=== PATIENT | female | born 1955 | race Caucasian/White ===

== ENCOUNTER 2021-07-02 21:57 | Inpatient (IN) ==
[2021-07-02] MEDS ORDERED: 0.9 % SODIUM CHLORIDE 1,000 ML IV ONE (22:33)
[2021-07-02 22:39] LABS: POC Calcium, Ionized 1.02 mmEq/L (1.16-1.32); POC Potassium 3.3 mEql/L (3.3-5.1)
[2021-07-02] MEDS ORDERED: ONDANSETRON 4 MG/2 ML VIAL IV ONE (22:51)
[2021-07-02] MEDS ORDERED: ACETAMINOPHEN 325 MG TABLET PO ONE (22:51)
[2021-07-02] MEDS ORDERED: FAMOTIDINE/PF 20 MG/2 ML VIAL IV ONE (22:51)
[2021-07-02] MEDS ORDERED: IPRATROPIUM/ALBUTEROL 3 ML AMPUL.NEB NEB ONE (22:52)
--- NOTE | 2021-07-02 22:55 | Emergency Department Note ---
HPI General Chief complaint: Syncope Stated complaint: passsed out Time Seen by Provider: 07/02/21 22:26 Source: patient Mode of arrival: EMS Limitations: no limitations History of Present Illness HPI Narrative: Narrative: 65-year-old female with no known past medical problems although she does not see a doctor frequently presenting to the ED with 5 days of generalized illness she reports. She has had fever T-max 10 1-1 03, cough, headache, fatigue, some watery nausea vomiting diarrhea. She denies any chest pain shortness of breath she denies any sore throat or significant congestion. No abdominal pain no urinary symptoms. Does feel progressively dehydrated and family member reports when he helped assist her to the toilet once she sat down she seemed to momentarily syncopized while seated and then regained consciousness versus momentarily confused. At no point did she fall or hit her head. No seizure-like activity, and has no focal neurologic symptoms. Patient denies any preceding events and currently other than the presenting symptoms as no new complaints following this brief episode. Of note is not vaccinated against COVID-19. Does smoke. Family reports they have been checking her pulse ox at home and it has been a bit low. Related Data Home Medications Medication Instructions Recorded Confirmed No Known Home Meds 07/02/21 07/02/21 Allergies Allergy/AdvReac Type Severity Reaction Status Date / Time No Known Drug Allergies Allergy Verified 03/11/16 02:29 Review of Systems ROS ROS Narrative: Narrative: At least 10 systems reviewed and otherwise acutely negative except as in the HPI PFSH Narrative Patient History Narrative: Narrative: Medical/Surgical/Family History All Active Problems (Updated 07/03/21 @ 06:01 by Jarrett Fernandes DO) COVID-19 (Acute) Dehydration (Acute) Acute viral syndrome (Acute) Generalized weakness (Acute) Unable to control bladder (Acute) Numbness and tingling of both feet (Acute) Foot swelling (Acute) Cellulitis (Acute) Wrist pain, acute (Acute) Medical History Cellulitis Foot swelling Numbness and tingling of both feet Unable to control bladder Surgical History No pertinent past surgical history Family History Uncle Cancer Sister Cancer Grandmother Cancer Grandfather Diabetes Mother High blood pressure Social History Smoking Status: Current every day smoker Alcohol Intake Frequency: does not drink Substance Use: does not use Exam Narrative Narrative: Narrative: Constitutional: normally developed, overall a bit ill-appearing although nondistressed, a bit sweaty Head: Normocephalic, atraumatic, Eyes: No Icterus, ENT: Dry mucus membranes, normal posterior oropharynx Neck: Supple, no meningismus Cardiac: Normal heart sounds, palpable radial pulses, Pulmonary: Normal respiratory effort. Breath sounds coarse with sporadic crackle no obvious wheeze, rhonchi, rales, Gastrointestinal: Abdomen soft, non-distended, non-tender, Musculoskeletal: No gross deformities, well perfused Skin: warm, dry Neuro: Alert and oriented. Face symmetric, PERRLA, EOMI, visual tomlinson intact, symmetric sensation in face, bilateral upper and lower extremities. No drift in extremities, no [id number] ataxia, symmetric motor strength in bilateral upper and lower extremities, no aphasia, no dysarthria. NIH 0 GCS 15 General Limitations: no limitations Course Vital Signs Vital signs: Vital Signs Temperature 36.7 C 07/02/21 22:12 Pulse Rate 72 07/02/21 22:12 Respiratory Rate 16 07/02/21 22:12 Blood Pressure 82/60 07/02/21 22:12 Pulse Oximetry (%) 89 L 07/02/21 22:12 Temperature 36.6 C 07/03/21 05:11 Pulse Rate 70 07/03/21 05:11 Respiratory Rate 18 07/03/21 05:11 Blood Pressure 96/66 07/03/21 05:11 Pulse Oximetry (%) 97 07/03/21 04:31 [facility] MDM Narrative Medical decision making narrative: Narrative: 65-year-old with generalized illness for 5 days progressive then with a brief momentary episode of what sounds like syncope versus near syncope while seated on the toilet, without any trauma. No signs or symptoms to suggest new onset seizure, does not suggest central neurologic cause/stroke and she has a normal neurologic exam NIH is 0. Initial vitals were mildly hypotensive and mildly hypoxic 89% on room air. Concern for viral syndrome, COVID-19, symptoms do not suggest ACS or PE and she has had no chest pain whatsoever will obtain EKG no indication for troponin at this time. Patient does appear quite dry and this likely contributed to this brief syncopal episode likely due to her reports of fever in the setting of watery nausea vomiting and diarrhea. Was started upon arrival with a liter of saline, will perform infectious work-up including Covid and influenza swabs also give her a trial of a DuoNeb given her slightly coarse breath sounds and history of chronic smoking. Twelve-lead EKG shows sinus rhythm heart rate 68 NM, QRS, QTc within normal, no acute ischemia or arrhythmia noted Patient is in fact COVID-[address] the head shows no acute findings Reevaluation is feeling better with IV hydration, blood pressure remains low normal however her map has remained stable throughout and her lactic acid is normal I suspect this is likely near her normal blood pressure. She has not had any hypoxia she was weaned off oxygen remains with normal saturations on room air with stable vitals. No indication for Decadron or remdesivir at this time however does qualify for monoclonal antibodies given BMI greater than 25. Did provide written consent. Although she is feeling better we did do a trial of ambulation, she is able to stand but is still too weak to take more than 1 or 2 steps and she lives at home alone. Will need to be admitted for her generalized weakness dehydration secondary to her COVID-19 and further monitoring for any worsening of her known viral syndrome. She is agreeable to this plan. 0600: Have spoken with the hospitalist who accepts admission to observation [facility]. Patient resting comfortably vital signs stable at the time of admission. Lab Data Result diagrams: 07/02/21 22:16 Labs: Lab Results 07/02/21 07/02/21 07/02/21 Range/Units 22:16 22:16 22:28 WBC 4.0 L (4.5-11.0) K/mcL RBC 4.63 (3.59-5.38) M/mcL Hgb 13.2 (11.2-15.7) g/dL Hct 40.2 (34.1-44.9) % POC Hct 39 (36-48) % MCV 86.8 (80.0-100.0) fL MCH 28.5 (26.0-34.0) pg MCHC 32.8 (31.0-36.0) g/dL RDW 13.3 (11.5-14.5) % Plt Count 151 (140-440) K/mcL MPV 10.5 H (7.4-10.4) fL Neut % (Auto) 67.7 (38.0-78.0) % Lymph % (Auto) 27.9 (15.5-49.0) % [place] % (Auto) 4.2 (1.0-12.0) % Eos % (Auto) 0 (0.0-7.0) % Baso % (Auto) 0.2 (0.0-2.0) % Lymph # (Auto) 1.12 L (1.50-4.80) K/mcL [place] # (Auto) 0.17 (0.10-0.90) K/mcL Eos # (Auto) 0 (0.00-0.70) K/mcL Baso # (Auto) 0.01 (0.00-0.30) K/mcL Absolute Neutrophils 2.72 (1.80-8.00) K/mcL POC Sodium 137 (133-145) mEq/L POC Potassium 3.3 (3.3-5.1) mEql/L POC Chloride 101 (96-108) mEq/L POC Total CO2 21 L (22-30) mmol/L POC BUN 15 (6-20) mg/dL POC Creatinine 1.0 (0.6-1.2) mg/dL POC Glucose 129 H (70-105) mg/dL POC WB Ioniz Calcium 1.02 L (1.16-1.32) mmEq/L Magnesium 1.8 (1.6-2.5) mg/dL Urine Color Urine Appearance (Clear) Urine pH (5.0-9.0) Ur Specific [place] (1.000-1.035) Urine Protein (Negative) mg/dL Urine Glucose (UA) (Negative) mg/dL Urine Ketones (Negative) mg/dL Urine Occult Blood (Negative) mg/dL Urine Nitrate (Negative) Urine Bilirubin (Negative) mg/dL Urine Urobilinogen mg/dL Ur Leukocyte Esterase (Negative) /uL Urine RBC (0-3) /hpf Urine WBC (0-4) /hpf Ur Squamous Epith Cells (0-4) /hpf Urine Bacteria (0) /hpf Ur Culture Indicated? 07/03/21 Range/Units 02:50 WBC (4.5-11.0) K/mcL RBC (3.59-5.38) M/mcL Hgb (11.2-15.7) g/dL Hct (34.1-44.9) % POC Hct (36-48) % MCV (80.0-100.0) fL MCH (26.0-34.0) pg MCHC (31.0-36.0) g/dL RDW (11.5-14.5) % Plt Count (140-440) K/mcL MPV (7.4-10.4) fL Neut % (Auto) (38.0-78.0) % Lymph % (Auto) (15.5-49.0) % [place] % (Auto) (1.0-12.0) % Eos % (Auto) (0.0-7.0) % Baso % (Auto) (0.0-2.0) % Lymph # (Auto) (1.50-4.80) K/mcL [place] # (Auto) (0.10-0.90) K/mcL Eos # (Auto) (0.00-0.70) K/mcL Baso # (Auto) (0.00-0.30) K/mcL Absolute Neutrophils (1.80-8.00) K/mcL POC Sodium (133-145) mEq/L POC Potassium (3.3-5.1) mEql/L POC Chloride (96-108) mEq/L POC Total CO2 (22-30) mmol/L POC BUN (6-20) mg/dL POC Creatinine (0.6-1.2) mg/dL POC Glucose (70-105) mg/dL POC WB Ioniz Calcium (1.16-1.32) mmEq/L Magnesium (1.6-2.5) mg/dL Urine Color Yellow Urine Appearance Hazy A (Clear) Urine pH 7.0 (5.0-9.0) Ur Specific [place] 1.002 (1.000-1.035) Urine Protein Negative (Negative) mg/dL Urine Glucose (UA) Negative (Negative) mg/dL Urine Ketones Negative (Negative) mg/dL Urine Occult Blood Negative (Negative) mg/dL Urine Nitrate Negative (Negative) Urine Bilirubin Negative (Negative) mg/dL Urine Urobilinogen Negative mg/dL Ur Leukocyte Esterase Negative (Negative) /uL Urine RBC 1 (0-3) /hpf Urine WBC 0 (0-4) /hpf Ur Squamous Epith Cells 0 (0-4) /hpf Urine Bacteria None (0) /hpf Ur Culture Indicated? No ED POC Tests ED POC Tests: EMILEE - Influenza A Negative EMILEE - Influenza B Negative EMILEE - SARS Antigen Positive Discharge Plan Patient/Caregiver Discharge Instructions Pt seen by FITTER/WELDER/PA only: No Clinical Impression: COVID-19, Dehydration, Acute viral syndrome, Generalized weakness Patient Disposition: Xfer As Inpt ([facility]) Condition: Fair Follow up with: Sebas Lee MD [Primary Care Provider] - Prescriptions: No Action No Known Home Meds 0RF
[2021-07-03 00:16] LABS: Basophils # (Auto) 0.01 K/mcL (0.00-0.30); Basophils % (Auto) 0.2 % (0.0-2.0); Eosinophils # (Auto) 0 K/mcL (0.00-0.70); Eosinophils % (Auto) 0 % (0.0-7.0); Hematocrit 40.2 % (34.1-44.9); Hemoglobin 13.2 g/dL (11.2-15.7); Lymphocytes # (Auto) 1.12 K/mcL (1.50-4.80); Lymphocytes % (Auto) 27.9 % (15.5-49.0); Mean Cell Volume 86.8 fL (80.0-100.0); Mean Corpuscular HGB Conc 32.8 g/dL (31.0-36.0); Mean Platelet Volume 10.5 fL (7.4-10.4); Monocytes # (Auto) 0.17 K/mcL (0.10-0.90); Monocytes % (Auto) 4.2 % (1.0-12.0); Neutrophils % (Auto) 67.7 % (38.0-78.0); Platelet Count 151 K/mcL (140-440); RBC 4.63 M/mcL (3.59-5.38); Red Cell Distribution Width 13.3 % (11.5-14.5)
[2021-07-03] MEDS ORDERED: LACTATED RINGERS 500 ML IV ONE (01:23)
[2021-07-03 03:50] LABS: Appearance,Urine HAZY (Clear); Bilirubin,Urine Negative (Negative); Color,Urine YELLOW; Culture Indicated,Urine No; Glucose,Urine (UA) Negative (Negative); Ketones,Urine Negative (Negative); Leukocyte Esterase,Urine Negative /uL (Negative); Nitrate,Urine Negative (Negative); Protein,Urine Negative (Negative); Specific Gravity,Urine 1.002 (1.000-1.035); Urine Blood Negative (Negative); Urine RBC 1 /hpf (0-3); Urine Squamous Epithelial Cell 0 /hpf (0-4); Urine WBC 0 /hpf (0-4); Urobilinogen,Urine Negative
[2021-07-03] MEDS ORDERED: CASIRIVIMAB/IMDEVIMAB 10 ML in 0.9 % SODIUM CHLORIDE 50 ML IV SCH (04:00)
--- NOTE | 2021-07-03 05:52 | Cat Scan Report ---
INDICATION: syncope, confusion COMPARISON: None. TECHNIQUE: Axial noncontrast-enhanced images through the brain. Sagittally and coronally reformatted images. FINDINGS: Examination was initially interpreted by [facility] Cerebral hemispheres:Negative. No intra-axial abnormality. No intra-axial hematoma. No localized mass effect.Brain volume is within normal limits for age. Periventricular white matter is negative without significant attenuation abnormality. Brainstem and cerebellum:No intra-axial abnormality Extra-axial:No acute hemorrhage. No subdural or epidural hematoma. No subarachnoid hemorrhage. Basilar cisterns are normal Calvarial:No calvarial fracture. No lytic lesion Temporal bones are negative. No destructive lesions Soft tissue, orbits, sinuses:Orbits and visualized facial soft tissues and paranasal sinuses are negative IMPRESSION: Negative noncontrast enhanced brain CT scan The exam was performed using radiation dose optimization techniques including, but not limited to, automated exposure control, adjustment of the mA and/or kV according to patient size and use of iterative reconstruction technique. Interpreted and Authenticated by: Herrera Vo 07/03/21
--- NOTE | 2021-07-03 05:53 | XRay Report ---
INDICATION: cough, fever TECHNIQUE: AP portable semiupright chest x-ray COMPARISON: None FINDINGS: Lungs:Mild left basilar infiltrate. This is nonspecific but is consistent with covid pneumonia. Right lung is negative Heart, vascular:No significant cardiomegaly. Pulmonary vascularity is normal. No pulmonary edema or pulmonary congestion Mediastinum, enoc:No mediastinal widening. No hilar mass Pleura:No pleural fluid. No pleural-based mass or calcification Skeletal:Negative. IMPRESSION: 1. Mild left basilar infiltrate 2. Otherwise negative examination Interpreted and Authenticated by: Herrera Vo 07/03/21
[2021-07-03] MEDS ORDERED: ONDANSETRON 4 MG/2 ML VIAL IV PRN ×3 (05:58→11:39)
--- NOTE | 2021-07-03 07:43 | EKG ---
[facility] Test Date: 2021-07-02 Pat Name: Chayo Bermudez Department: ED Room: Gender: Female Premises Technician: SE : 1955 Requested By: Jarrett Fernandes Order Number: [id number] Reading MD: Raudel Atwood Measurements Intervals [place] Rate: 68 P: 22 HI: 180 QRS: -13 QRSD: 80 T: 19 QT: 420 QTc: 447 Interpretive Statements SINUS RHYTHM Electronically Signed On 07-03-2021 7:42:34 PST by Raudel Atwood /store/M0/[id number]/[id number].pdf
--- NOTE | 2021-07-03 08:59 | Internal Med History&Physical ---
HPI History of Present Illness Patient information: Note initiated : 07/03/21 at 8:56 am Service Date, if different from initiated Date: [] Patient: Chayo Bermudez a 65 y/o F admitted on for passsed out. Chief Complaint: [general body weakness, shortness of breath] History of present illness: Ms. Bermudez is a 65 year old F no past medical history, presenting with 1 week history of general body weakness, shortness of breath, respiratory wheezings, subjective fever and chills. Patient is not vaccinated against Covid pneumonia. No prior similar history. Over the past week, she experienced general body weakness, shortness of breath, respiratory wheezing, subjective fever and chills. Denies any cough or sputum productions. Denies any chest pain or palpitations. She also have generalized muscle and joint aches as well as decreased appetite. It was also reported that she had an episode of syncope earlier yesterday which prompted her son to bring her to our ER for further evaluations. Vital signs within normal limits upon ER presentations. She was tested positive for Covid pneumonia in the ER. Labs were largely within normal limits with absence of leukocytosis with WBC 4.0. Chest x-ray showing mild left basilar infiltrate otherwise negative examinations. CT of the head without contrast did not show any acute intracranial pathologies. Constitutional Constitutional: Present chills, fever(s) and weakness; Absent excessive sweating or fatigue EENT Eyes: Absent blurry vision, change in vision, loss of vision or other visual disturbances Ears: Absent decreased hearing or tinnitus Nose, mouth and throat: Absent abnormal hearing, dry mouth, headache(s), nasal congestion or sore throat Cardiovascular Cardiovascular: Absent chest pain, chest pain at rest, edema, irregular heart rhythm or palpatations Respiratory Respiratory: Present dyspnea and wheezing; Absent cough or excessive phlegm production Gastrointestinal Gastrointestinal: Absent abdominal pain, constipation, diarrhea, nausea or vomiting Musculoskeletal Musculoskeletal: Present arthralgias, muscle cramps and muscle weakness; Absent back pain, deformity, limited range of motion or numbness Integumentary Integumentary: Absent lesions, rash or wounds Neurological Neurological: Absent focal weakness, headache(s) or numbness Psychiatric Psychiatric: Absent anxiety, depression or hallucinations PFSH PFSH All Active Problems (Updated 07/03/21 @ 09:01 by Anderson Espinosa MD) Cigarette smoker (Acute) Hypokalemia (Acute) COVID-19 (Acute) Dehydration (Acute) Acute viral syndrome (Acute) Generalized weakness (Acute) Unable to control bladder (Acute) Numbness and tingling of both feet (Acute) Foot swelling (Acute) Cellulitis (Acute) Wrist pain, acute (Acute) Medical History Cellulitis Foot swelling Numbness and tingling of both feet Unable to control bladder Surgical History No pertinent past surgical history Family History Uncle Cancer Sister Cancer Grandmother Cancer Grandfather Diabetes Mother High blood pressure Social History (Updated 06/27/21 @ 13:51 by Rosario Alarcon) marital status: single smoking status: Current every day smoker alcohol intake frequency: does not drink substance use type: does not use MEDS/ALLERGIES Home Medications and Allergies Home Medications Medication Instructions Recorded Confirmed Type No Known Home Meds 07/02/21 07/02/21 History Allergies Allergy/AdvReac Type Severity Reaction Status Date / Time No Known Drug Allergies Allergy Verified 03/11/16 02:29 EXAM Constitutional Vitals: Temp Pulse Resp BP Pulse Ox 37.1 C 69 20 109/78 100 07/03/21 08:32 07/03/21 08:16 07/03/21 08:32 07/03/21 08:32 07/03/21 08:16 General appearance: cooperative and no acute distress Head Head exam: Present atraumatic and normocephalic Eye Eye exam: Present EOMI and PERRL ENT ENT exam: Present mucous membranes moist, normal exam and normal external ear exam Neck Neck exam: Present normal inspection; Absent lymphadenopathy, tenderness or thyromegaly Respiratory Respiratory exam: Absent accessory muscle use, respiratory distress or wheezes Cardiovascular Cardiovascular exam: Present normal rate and rhythm; Absent JVD GI/Abdominal GI/Abdominal exam: Present normal bowel sounds and soft; Absent organomegaly or tenderness Extremities Exam Extremities exam: Present full ROM, normal capillary refill and normal inspection; Absent tenderness Neurological Exam Neurological exam: Present alert, CN II-XII intact and oriented X3; Absent motor sensory deficit Psychiatric Psychiatric exam: Present normal affect and normal mood; Absent anxious or depressed Skin Skin exam: Present dry and intact DATA Data Completed and Pending Labs: Labs from last 24 hours 07/03/21 07/02/21 07/02/21 02:50 22:28 22:16 WBC RBC Hgb Hct POC Hct 39 MCV MCH MCHC RDW Plt Count MPV Neut % (Auto) Lymph % (Auto) [place] % (Auto) Eos % (Auto) Baso % (Auto) Lymph # (Auto) [place] # (Auto) Eos # (Auto) Baso # (Auto) Absolute Neutrophils POC Sodium 137 POC Potassium 3.3 POC Chloride 101 POC Total CO2 21 L POC BUN 15 POC Creatinine 1.0 POC Glucose 129 H POC WB Ioniz Calcium 1.02 L Magnesium 1.8 Urine Color Yellow Urine Appearance Hazy A Urine pH 7.0 Ur Specific [place] 1.002 Urine Protein Negative Urine Glucose (UA) Negative Urine Ketones Negative Urine Occult Blood Negative Urine Nitrate Negative Urine Bilirubin Negative Urine Urobilinogen Negative Ur Leukocyte Esterase Negative Urine RBC 1 Urine WBC 0 Ur Squamous Epith Cells 0 Urine Bacteria None Ur Culture Indicated? No 07/02/21 22:16 WBC 4.0 L RBC 4.63 Hgb 13.2 Hct 40.2 POC Hct MCV 86.8 MCH 28.5 MCHC 32.8 RDW 13.3 Plt Count 151 MPV 10.5 H Neut % (Auto) 67.7 Lymph % (Auto) 27.9 [place] % (Auto) 4.2 Eos % (Auto) 0 Baso % (Auto) 0.2 Lymph # (Auto) 1.12 L [place] # (Auto) 0.17 Eos # (Auto) 0 Baso # (Auto) 0.01 Absolute Neutrophils 2.72 POC Sodium POC Potassium POC Chloride POC Total CO2 POC BUN POC Creatinine POC Glucose POC WB Ioniz Calcium Magnesium Urine Color Urine Appearance Urine pH Ur Specific [place] Urine Protein Urine Glucose (UA) Urine Ketones Urine Occult Blood Urine Nitrate Urine Bilirubin Urine Urobilinogen Ur Leukocyte Esterase Urine RBC Urine WBC Ur Squamous Epith Cells Urine Bacteria Ur Culture Indicated? A/P Assessment and plan (1) COVID-19: Status: Acute (2) Acute viral syndrome: Status: Acute (3) Generalized weakness: Status: Acute (4) Hypokalemia: Status: Acute (5) Cigarette smoker: Status: Acute Narrative A/P Narrative: Assessment and Plans: 1. CoVID pneumonia with associated general body weakness: Admit to observation med surg Isolations: airborne and contact Currently on room air, will NOT initiate CoVID specific treatment at this point IV NS@100cc/hr for gentle rehydration purposes Tylenol PRN fever Ibuprofen PRN muscle cramps DuoNEB NEB PRN wheezing or SOB Physical therapy Occupational therapy 2. Hypokalemia: Potassium chloride oral replacement CMP in the morning to trend serum potassium level Also check serum Mg level and will replace if needed 3. Current cigarette smoker: Nicotine replacement therapy GI ppx: not currently indicated DVT ppx: Lovenox Code status: Full Prognosis: stable Disposition: observation med surg Time Spent With Patient Time: Total time spent is greater than 50% in coordination of care (as documented) at patient's floor/unit and/or counseling patient: Total time spent with greater than 50% in coordination of care (as documented) at patient's floor/unit and/or counseling patient:: 15 - 24 minutes
[2021-07-03] MEDS ORDERED: IBUPROFEN 600 MG TABLET PO PRN (11:39)
[2021-07-03] MEDS ORDERED: IPRATROPIUM/ALBUTEROL 3 ML AMPUL.NEB NEB PRN (11:39)
[2021-07-03] MEDS ORDERED: traZODone HCL 50 MG TABLET PO PRN (11:39)
[2021-07-03] MEDS: NICOTINE 21 MG PATCH TOPICAL SCH (12:00)
[2021-07-03] MEDS: ENOXAPARIN 40 MG/0.4 ML SYRINGE SQ SCH (12:00)
[2021-07-03] MEDS: DOCUSATE SODIUM 100 MG CAPSULE PO SCH ×2 (12:00→20:40)
[2021-07-03] MEDS: 0.9 % SODIUM CHLORIDE 1,000 ML IV SCH ×2 (12:01→22:09)
[2021-07-03] MEDS: ACETAMINOPHEN 325 MG TABLET PO PRN ×2 (12:01→22:08)
[2021-07-03] MEDS: 0.9 % SODIUM CHLORIDE 10 ML SYRINGE IV SCH ×2 (13:18→20:40)
[2021-07-03 14:18] LABS: Basophils # (Auto) 0.01 K/mcL (0.00-0.30); Basophils % (Auto) 0.2 % (0.0-2.0); Eosinophils # (Auto) 0 K/mcL (0.00-0.70); Eosinophils % (Auto) 0 % (0.0-7.0); Hematocrit 38.8 % (34.1-44.9); Hemoglobin 12.5 g/dL (11.2-15.7); Lymphocytes # (Auto) 0.58 K/mcL (1.50-4.80); Lymphocytes % (Auto) 11.1 % (15.5-49.0); Mean Corpuscular HGB Conc 32.2 g/dL (31.0-36.0); Mean Platelet Volume 10.1 fL (7.4-10.4); Monocytes # (Auto) 0.09 K/mcL (0.10-0.90); Monocytes % (Auto) 1.7 % (1.0-12.0); Platelet Count 139 K/mcL (140-440); RBC 4.36 M/mcL (3.59-5.38); Red Cell Distribution Width 13.4 % (11.5-14.5); WBC 5.2 K/mcL (4.5-11.0)
[2021-07-03 14:23] LABS: ALT/SGPT 12 U/L (<40); AST/SGOT 37 U/L (<32); Albumin 2.9 gm/dL (3.2-5.2); Albumin/Globulin Ratio 1.1 (1.0-2.3); Alkaline Phosphatase 64 U/L (39-117); Bilirubin,Total 0.3 mg/dL (0.1-1.0); Blood Urea Nitrogen 10 mg/dL (8-23); Calcium 7.7 mg/dL (8.6-10.4); Carbon Dioxide 19 mmol/L (22-30); Chloride 100 mmol/L (96-108); Globulin 2.7 gm/dL (2.2-3.7); Glomerular Filtration Rate 68; Glucose 213 mg/dL (70-105)
[2021-07-03] MEDS: POTASSIUM CHLORIDE 20 MEQ TABLET PO SCH (17:22)
[2021-07-03] MEDS ORDERED: POTASSIUM CHLORIDE 20 MEQ TABLET PO SCH (17:30)
[2021-07-03] MEDS: SENNOSIDES 1 TABLET PO SCH (20:40)
[2021-07-04] MEDS: 0.9 % SODIUM CHLORIDE 10 ML SYRINGE IV SCH ×3 (06:43→20:29)
[2021-07-04 07:41] LABS: Basophils # (Auto) 0.02 K/mcL (0.00-0.30); Basophils % (Auto) 0.3 % (0.0-2.0); Eosinophils # (Auto) 0 K/mcL (0.00-0.70); Eosinophils % (Auto) 0 % (0.0-7.0); Hematocrit 41.4 % (34.1-44.9); Hemoglobin 13.1 g/dL (11.2-15.7); Lymphocytes # (Auto) 1.75 K/mcL (1.50-4.80); Lymphocytes % (Auto) 26.9 % (15.5-49.0); Mean Corpuscular HGB Conc 31.6 g/dL (31.0-36.0); Mean Platelet Volume 10.4 fL (7.4-10.4); Monocytes # (Auto) 0.17 K/mcL (0.10-0.90); Monocytes % (Auto) 2.6 % (1.0-12.0); Neutrophils % (Auto) 70.2 % (38.0-78.0); Platelet Count 142 K/mcL (140-440); Red Cell Distribution Width 13.6 % (11.5-14.5); WBC 6.5 K/mcL (4.5-11.0)
[2021-07-04 08:00] LABS: ALT/SGPT 14 U/L (<40); AST/SGOT 50 U/L (<32); Albumin 2.7 gm/dL (3.2-5.2); Alkaline Phosphatase 61 U/L (39-117); Bilirubin,Total 0.2 mg/dL (0.1-1.0); Blood Urea Nitrogen 8 mg/dL (8-23); Calcium 7.7 mg/dL (8.6-10.4); Carbon Dioxide 20 mmol/L (22-30); Chloride 111 mmol/L (96-108); Globulin 2.6 gm/dL (2.2-3.7); Glomerular Filtration Rate 92; Glucose 89 mg/dL (70-105)
[2021-07-04] MEDS: 0.9 % SODIUM CHLORIDE 1,000 ML IV SCH (08:10)
[2021-07-04] MEDS: ENOXAPARIN 40 MG/0.4 ML SYRINGE SQ SCH (08:10)
[2021-07-04] MEDS: POTASSIUM CHLORIDE 20 MEQ TABLET PO SCH ×2 (08:10→17:22)
[2021-07-04] MEDS: DOCUSATE SODIUM 100 MG CAPSULE PO SCH ×2 (08:11→20:29)
--- NOTE | 2021-07-04 09:36 | Internal Med Progress Note ---
SUBJECTIVE Subjective Patient information: Note initiated : 07/04/21 at 9:33 am Service Date, if different from initiated Date: [] Patient: Chayo Bermudez a 65 y/o F admitted on 07/03/21 for passsed out. Chief Complaint: [CoVID pneumonia] Interval history: History of present illness: Ms. Bermudez is a 65 year old F no past medical history, presenting with 1 week history of general body weakness, shortness of breath, respiratory wheezings, subjective fever and chills. Patient is not vaccinated against Covid pneumonia. No prior similar history. Over the past week, she experienced general body weakness, shortness of breath, respiratory wheezing, subjective fever and chills. Denies any cough or sputum productions. Denies any chest pain or palpitations. She also have generalized muscle and joint aches as well as decreased appetite. It was also reported that she had an episode of syncope earlier yesterday which prompted her son to bring her to our ER for further evaluations. Vital signs within normal limits upon ER presentations. She was tested positive for Covid pneumonia in the ER. Labs were largely within normal limits with absence of leukocytosis with WBC 4.0. Chest x-ray showing mild left basilar infiltrate otherwise negative examinations. CT of the head without contrast did not show any acute intracranial pathologies. 07/04: Fever with Tmax 39.6 overnight. Was on 2L/min oxygen last night while sleeping, currently on room air. c/o general body weakness. c/o nonproductive cough. c/o fever and chills. Constitutional Vitals: Vital Signs Temp Pulse Resp BP Pulse Ox 36.2 C 59 L 18 101/57 99 07/04/21 07:50 07/04/21 07:50 07/04/21 07:50 07/04/21 07:50 07/04/21 07:50 Period Temp Pulse Resp BP Sys/Saucedo Pulse Ox Last 24 Hr 36.1 C-39.6 C 55-95 16-25 90-156/50-77 91-99 Intake and Output 07/03/21 07/04/21 07/04/21 21:59 05:59 13:59 Intake Total 1000 1400 1000 Output Total 1700 1150 Balance -490 499 4762 Weight 86.183 kg Intake & Output: Intake & Output 07/03/21 07/04/21 07/04/21 21:59 05:59 13:59 Intake Total 1000 1400 1000 Output Total 1700 1150 Balance -016 221 9097 Weight 86.183 kg Intake: IV 1000 1000 Sodium Chloride 0.9% 1,000 ml @ 1000 1000 100 mls/hr IV .Q10H [facility] Rx#: [id number] Oral 1000 400 Output: Void Amount 1700 1150 Other: Meal Dinner Percent of Meal Consumed 75% Feeding Ability Independent Urine Appearance Clear Clear Urine Color Bright Yellow Bright Yellow General appearance: cooperative, disheveled and no acute distress Head Head exam: Present atraumatic and normal inspection Eye Eye exam: Present normal appearance ENT ENT exam: Present mucous membranes moist, normal exam and normal external ear exam Neck Neck exam: Present normal inspection Respiratory Respiratory exam: Present normal respiratory exam and rhonchi; Absent wheezes Cardiovascular Cardiovascular exam: Present normal rate and rhythm GI/Abdominal GI/Abdominal exam: Present normal bowel sounds Back Exam Back exam: Present normal inspection Neurological Exam Neurological exam: Present alert and oriented X3 Skin Skin exam: Present intact and warm OBJ DATA Labs CBC & Chem 7: 07/04/21 05:31 07/04/21 05:30 Labs: Abnormal Lab Results 07/04/21 07/03/21 07/03/21 05:30 13:11 13:11 WBC Plt Count 139 L MPV Neut % (Auto) 87.0 H Lymph % (Auto) 11.1 L Lymph # (Auto) 0.58 L [place] # (Auto) 0.09 L Potassium 3.2 L Chloride 111 H Carbon Dioxide 20 L 19 L POC Total CO2 Glucose 213 H POC Glucose Calcium 7.7 L 7.7 L POC WB Ioniz Calcium AST 50 H 37 H Total Protein 5.3 L 5.6 L Albumin 2.7 L 2.9 L Urine Appearance 07/03/21 07/02/21 07/02/21 02:50 22:28 22:16 WBC 4.0 L Plt Count MPV 10.5 H Neut % (Auto) Lymph % (Auto) Lymph # (Auto) 1.12 L [place] # (Auto) Potassium Chloride Carbon Dioxide POC Total CO2 21 L Glucose POC Glucose 129 H Calcium POC WB Ioniz Calcium 1.02 L AST Total Protein Albumin Urine Appearance Hazy A Meds: Medications Acetaminophen (Acetaminophen 325 Mg Tablet) 650 mg PO Q6HP PRN; Protocol PRN Reason: Per Pain Protocol/Fever > 101 Last Admin: 07/03/21 22:08 Dose: 650 mg Documented by: Albuterol/Ipratropium (Ipratropium/Albuterol 3 Ml Ampul.Neb) 3 ml NEB Q4HRT PRN PRN Reason: Wheezing Docusate Sodium (Docusate Sodium 100 Mg Capsule) 100 mg PO BID [facility] Last Admin: 07/04/21 08:11 Dose: 100 mg Documented by: Enoxaparin Sodium (Enoxaparin 40 Mg/0.4 Ml Syringe) 40 mg SQ DAILY [facility] Last Admin: 07/04/21 08:10 Dose: 40 mg Documented by: Sodium Chloride (Sodium Chloride 0.9%) 1,000 mls @ 100 mls/hr IV .Q10H [facility] Last Admin: 07/04/21 08:10 Dose: 100 mls/hr Documented by: Ibuprofen (Ibuprofen 600 Mg Tablet) 600 mg PO QIDP PRN; Protocol PRN Reason: Per Pain Protocol/Fever > 101 Last Admin: 07/03/21 18:57 Dose: 600 mg Documented by: Nicotine (Nicotine 21 Mg Patch) 21 mg TOPICAL DAILY@1000 [facility] Last Admin: 07/03/21 12:00 Dose: 21 mg Documented by: Ondansetron HCl (Ondansetron 4 Mg/2 Ml Vial) 4 mg IV Q4HP PRN; Protocol PRN Reason: Nausea And Vomiting Last Admin: 07/03/21 19:05 Dose: 4 mg Documented by: Ondansetron HCl (Ondansetron 4 Mg/2 Ml Vial) 4 mg IV Q6HP PRN PRN Reason: Nausea And Vomiting Potassium Chloride (Potassium Chloride 20 Meq Tablet) 20 meq PO BIDCC [facility] Last Admin: 07/04/21 08:10 Dose: 20 meq Documented by: Senna (Sennosides 1 Tablet) 2 tab PO HS [facility] Last Admin: 07/03/21 20:40 Dose: Not Given Documented by: Sodium Chloride (0.9 % Sodium Chloride 10 Ml Syringe) 10 ml IV Q8 [facility] Last Admin: 07/04/21 06:43 Dose: Not Given Documented by: Trazodone HCl (Trazodone Hcl 50 Mg Tablet) 25 mg PO HSP PRN PRN Reason: Insomnia A/P Assessment and plan (1) COVID-19: Status: Acute (2) Acute viral syndrome: Status: Acute (3) Generalized weakness: Status: Acute (4) Hypokalemia: Status: Acute (5) Cigarette smoker: Status: Acute Narrative A/P Narrative: Assessment and Plans: 1. CoVID pneumonia with associated general body weakness: Stays in observation med surg Isolations: airborne and contact Currently on room air, will NOT initiate CoVID specific treatment at this point IV NS@100cc/hr for gentle rehydration purposes Tylenol PRN fever Ibuprofen PRN muscle cramps DuoNEB NEB PRN wheezing or SOB Physical therapy Occupational therapy Blood culture 2. Hypokalemia: RESOLVED Potassium chloride oral replacement CMP in the morning to trend serum potassium level Also check serum Mg level and will replace if needed 3. Current cigarette smoker: Nicotine replacement therapy GI ppx: not currently indicated DVT ppx: Lovenox Code status: Full Prognosis: guaarded Disposition: observation med surg Time Spent With Patient Time: Total time spent is greater than 50% in coordination of care (as documented) at patient's floor/unit and/or counseling patient: Total time spent with greater than 50% in coordination of care (as documented) at patient's floor/unit and/or counseling patient:: 25 - 35 minutes QUALITY VTE Deep Vein Thrombosis/Pulmonary Embolism Present on Admission: No
[2021-07-04] MEDS: NICOTINE 21 MG PATCH TOPICAL SCH (11:06)
--- NOTE | 2021-07-04 12:04 | Internal Med Progress Note ---
SUBJECTIVE Subjective Patient information: Note initiated : 07/04/21 at 12:01 pm Service Date, if different from initiated Date: [] Patient: Chayo Bermudez a 65 y/o F admitted on 07/03/21 for passsed out. Chief Complaint: [] Interval history: History of present illness: Ms. Bermudez is a 65 year old F no past medical history, presenting with 1 week history of general body weakness, shortness of breath, respiratory wheezings, subjective fever and chills. Patient is not vaccinated against Covid pneumonia. No prior similar history. Over the past week, she experienced general body weakness, shortness of breath, respiratory wheezing, subjective fever and chills. Denies any cough or sputum productions. Denies any chest pain or palpitations. She also have generalized muscle and joint aches as well as decreased appetite. It was also reported that she had an episode of syncope earlier yesterday which prompted her son to bring her to our ER for further evaluations. Vital signs within normal limits upon ER presentations. She was tested positive for Covid pneumonia in the ER. Labs were largely within normal limits with absence of leukocytosis with WBC 4.0. Chest x-ray showing mild left basilar infiltrate otherwise negative examinations. CT of the head without contrast did not show any acute intracranial pathologies. 07/04: Fever with Tmax 39.6 overnight. Was on 2L/min oxygen last night while sleeping, currently on room air. c/o general body weakness. c/o nonproductive cough. c/o fever and chills. 07/05 Constitutional Vitals: Vital Signs Temp Pulse Resp BP Pulse Ox 98.4 F 78 17 125/66 91 07/04/21 11:55 07/04/21 11:55 07/04/21 11:55 07/04/21 11:55 07/04/21 11:55 Period Temp Pulse Resp BP Sys/Saucedo Pulse Ox Last 24 Hr 97 F-103.2 F 55-92 16-22 90-156/50-71 91-99 Intake and Output 07/03/21 07/04/21 07/04/21 21:59 05:59 13:59 Intake Total 1000 1400 1480 Output Total 1700 1150 600 Balance -700 250 880 Weight 86.183 kg Intake & Output: Intake & Output 07/03/21 07/04/21 07/04/21 21:59 05:59 13:59 Intake Total 1000 1400 1480 Output Total 1700 1150 600 Balance -700 250 880 Weight 86.183 kg Intake: IV 1000 1000 Sodium Chloride 0.9% 1,000 ml @ 1000 1000 100 mls/hr IV .Q10H [facility] Rx#: [id number] Oral 1000 400 480 Output: Void Amount 1700 1150 600 Other: Meal Dinner Breakfast Percent of Meal Consumed 75% 75% Feeding Ability Independent Assist with Tray Set Up Urine Appearance Clear Clear Cloudy Urine Color Bright Yellow Bright Yellow Dark Yellow Urine Odor Strong Exam: General: Alert, Awake, No acute Distress Eyes/N/T: EOMI, Head/Neck: neck supple, CV: RRR, No murmurs, Pulm: Clear b/l, no wheezing/rhonchi/rales Abd: soft, nontender, +BS x4 Ext: no clubbing/cyanosis/edema Neuro: Alert, no focal deficits, moves all extremities, Skin: warm/dry OBJ DATA Labs CBC & Chem 7: 07/04/21 05:31 07/04/21 05:30 Labs: Abnormal Lab Results 07/04/21 07/03/21 07/03/21 05:30 13:11 13:11 WBC Plt Count 139 L MPV Neut % (Auto) 87.0 H Lymph % (Auto) 11.1 L Lymph # (Auto) 0.58 L [place] # (Auto) 0.09 L Potassium 3.2 L Chloride 111 H Carbon Dioxide 20 L 19 L POC Total CO2 Glucose 213 H POC Glucose Calcium 7.7 L 7.7 L POC WB Ioniz Calcium AST 50 H 37 H Total Protein 5.3 L 5.6 L Albumin 2.7 L 2.9 L Urine Appearance 07/03/21 07/02/21 07/02/21 02:50 22:28 22:16 WBC 4.0 L Plt Count MPV 10.5 H Neut % (Auto) Lymph % (Auto) Lymph # (Auto) 1.12 L [place] # (Auto) Potassium Chloride Carbon Dioxide POC Total CO2 21 L Glucose POC Glucose 129 H Calcium POC WB Ioniz Calcium 1.02 L AST Total Protein Albumin Urine Appearance Hazy A Meds: Medications Acetaminophen (Acetaminophen 325 Mg Tablet) 650 mg PO Q6HP PRN; Protocol PRN Reason: Per Pain Protocol/Fever > 101 Last Admin: 07/03/21 22:08 Dose: 650 mg Documented by: Albuterol/Ipratropium (Ipratropium/Albuterol 3 Ml Ampul.Neb) 3 ml NEB Q4HRT PRN PRN Reason: Wheezing Docusate Sodium (Docusate Sodium 100 Mg Capsule) 100 mg PO BID [facility] Last Admin: 07/04/21 08:11 Dose: 100 mg Documented by: Enoxaparin Sodium (Enoxaparin 40 Mg/0.4 Ml Syringe) 40 mg SQ DAILY [facility] Last Admin: 07/04/21 08:10 Dose: 40 mg Documented by: Sodium Chloride (Sodium Chloride 0.9%) 1,000 mls @ 100 mls/hr IV .Q10H [facility] Last Admin: 07/04/21 08:10 Dose: 100 mls/hr Documented by: Ibuprofen (Ibuprofen 600 Mg Tablet) 600 mg PO QIDP PRN; Protocol PRN Reason: Per Pain Protocol/Fever > 101 Last Admin: 07/03/21 18:57 Dose: 600 mg Documented by: Nicotine (Nicotine 21 Mg Patch) 21 mg TOPICAL DAILY@1000 [facility] Last Admin: 07/04/21 11:06 Dose: 21 mg Documented by: Ondansetron HCl (Ondansetron 4 Mg/2 Ml Vial) 4 mg IV Q4HP PRN; Protocol PRN Reason: Nausea And Vomiting Last Admin: 07/03/21 19:05 Dose: 4 mg Documented by: Ondansetron HCl (Ondansetron 4 Mg/2 Ml Vial) 4 mg IV Q6HP PRN PRN Reason: Nausea And Vomiting Potassium Chloride (Potassium Chloride 20 Meq Tablet) 20 meq PO BIDCC [facility] Last Admin: 07/04/21 08:10 Dose: 20 meq Documented by: Senna (Sennosides 1 Tablet) 2 tab PO HS [facility] Last Admin: 07/03/21 20:40 Dose: Not Given Documented by: Sodium Chloride (0.9 % Sodium Chloride 10 Ml Syringe) 10 ml IV Q8 [facility] Last Admin: 07/04/21 06:43 Dose: Not Given Documented by: Trazodone HCl (Trazodone Hcl 50 Mg Tablet) 25 mg PO HSP PRN PRN Reason: Insomnia A/P Narrative A/P Narrative: A: *CoVID pneumonia with associated general body weakness: -observation med surg -Currently on room air, will NOT initiate CoVID specific treatment at this point -Physical therapy / Occupational therapy -Blood culture * Hypokalemia: RESOLVED *Tobacco abuse:Nicotine replacement therapy *ppx: Lovenox Code status: Progressive Die Maker Spent With Patient Time: Total time spent is greater than 50% in coordination of care (as documented) at patient's floor/unit and/or counseling patient: QUALITY VTE Deep Vein Thrombosis/Pulmonary Embolism Present on Admission: No
--- NOTE | 2021-07-04 12:06 | Discharge Summary ---
Discharge Provider Provider Patient information: Note initiated : 07/04/21 at 12:04 pm Service Date, if different from initiated Date: [] Patient: Chayo Bermudez a 65 y/o F admitted on 07/03/21 for passsed out. Chief Complaint: [] Date of admission: 07/03/21 11:20 Primary care physician: Sbeas Lee MD Consults: 07/03/21 Consult to Physician [CONS] Stat Comment: Consulting Provider: Anderson Espinosa Reason For Exam: Physician to Consult Discharge Meds Discharge Medications Home Medications No Known Home Meds 07/02/21 [History Confirmed 07/02/21 Last Taken Unknown] COURSE Hospital Course Hospital course: History of present illness: Ms. Bermudez is a 65 year old F no past medical history, presenting with 1 week history of general body weakness, shortness of breath, respiratory wheezings, subjective fever and chills. Patient is not vaccinated against Covid pneumonia. No prior similar history. Over the past week, she experienced gen eral body weakness, shortness of breath, respiratory wheezing, subjective fever and chills. Denies any cough or sputum productions. Denies any chest pain or palpitations. She also have generalized muscle and joint aches as well as decreased appetite. It was also reported that she had an episode of syncope earlier yesterday which prompted her son to bring her to our ER for further evaluations. Vital signs within normal limits upon ER presentations. She was tested positive for Covid pneumonia in the ER. Labs were largely within normal limits with absence of leukocytosis with WBC 4.0. Chest x-ray showing mild left basilar infiltrate otherwise negative examinations. CT of the head without contrast did not show any acute intracranial pathologies. 07/04: Fever with Tmax 39.6 overnight. Was on 2L/min oxygen last night while sleeping, currently on room air. c/o general body weakness. c/o nonproductive cough. c/o fever and chills. 07/05 A: *CoVID pneumonia with associated general body weakness: -observation med surg -Currently on room air, will NOT initiate CoVID specific treatment at this point -Physical therapy / Occupational therapy -Blood culture * Hypokalemia: RESOLVED *Tobacco abuse:Nicotine replacement therapy Discharge diagnosis: Covid pneumonia on room air generalized weakness hypokalemia Secondary discharge diagnosis: Tobacco abuse Time Spent with Patient Time attestation: Total time spent providing and/or coordinating discharge services: Time spent: Greater than 30 minutes EXAM Constitutional Vitals: Temp Pulse Resp BP Pulse Ox 98.4 F 78 17 125/66 91 07/04/21 11:55 07/04/21 11:55 07/04/21 11:55 07/04/21 11:55 07/04/21 11:55 Discharge Data Data Completed and Pending Labs on day of discharge: Labs from last 24 hours 07/04/21 07/04/21 07/03/21 05:31 05:30 13:11 WBC 6.5 RBC 4.50 Hgb 13.1 Hct 41.4 MCV 92.0 MCH 29.1 MCHC 31.6 RDW 13.6 Plt Count 142 MPV 10.4 Neut % (Auto) 70.2 Lymph % (Auto) 26.9 Will % (Auto) 2.6 Eos % (Auto) 0 Baso % (Auto) 0.3 Lymph # (Auto) 1.75 [place] # (Auto) 0.17 Eos # (Auto) 0 Baso # (Auto) 0.02 Absolute Neutrophils 4.56 Sodium 140 134 Potassium 3.9 3.2 L Chloride 111 H 100 Carbon Dioxide 20 L 19 L Anion Gap 9.0 15.0 BUN 8 10 Creatinine 0.7 0.9 GFR Calculation 92 68 Glucose 89 213 H Calcium 7.7 L 7.7 L Total Bilirubin 0.2 0.3 AST 50 H 37 H ALT 14 12 Alkaline Phosphatase 61 64 Total Protein 5.3 L 5.6 L Albumin 2.7 L 2.9 L Globulin 2.6 2.7 Albumin/Globulin Ratio 1.0 1.1 07/03/21 13:11 WBC 5.2 RBC 4.36 Hgb 12.5 Hct 38.8 MCV 89.0 MCH 28.7 MCHC 32.2 RDW 13.4 Plt Count 139 L MPV 10.1 Neut % (Auto) 87.0 H Lymph % (Auto) 11.1 L [place] % (Auto) 1.7 Eos % (Auto) 0 Baso % (Auto) 0.2 Lymph # (Auto) 0.58 L [place] # (Auto) 0.09 L Eos # (Auto) 0 Baso # (Auto) 0.01 Absolute Neutrophils 4.53 Sodium Potassium Chloride Carbon Dioxide Anion Gap BUN Creatinine GFR Calculation Glucose Calcium Total Bilirubin AST ALT Alkaline Phosphatase Total Protein Albumin Globulin Albumin/Globulin Ratio Discharge Plan Patient/Caregiver Discharge Instructions Activity: increase activity as tolerated Diet: Regular Diet Prescriptions: No Action No Known Home Meds 0RF Follow Up Plan Follow up with: Sebas eLe MD [Primary Care Provider] - Patient Disposition: Home Health Service Prognosis: Fair Overall status at discharge: patient is progressing back to baseline QUALITY VTE Deep Vein Thrombosis/Pulmonary Embolism Present on Admission: No
[2021-07-04] MEDS: ACETAMINOPHEN 325 MG TABLET PO PRN ×2 (15:43→21:09)
[2021-07-04] MEDS: SENNOSIDES 1 TABLET PO SCH (20:29)
[2021-07-05] MEDS: 0.9 % SODIUM CHLORIDE 10 ML SYRINGE IV SCH ×3 (06:44→22:35)
--- NOTE | 2021-07-05 08:05 | Internal Med Progress Note ---
SUBJECTIVE Subjective Patient information: Note initiated : 07/05/21 at 8:02 am Service Date, if different from initiated Date: [] Patient: Chayo Bermudez a 65 y/o F admitted on 07/03/21 for passsed out. Chief Complaint: [] Interval history: History of present illness: Ms. Bermudez is a 65 year old F no past medical history, presenting with 1 week history of general body weakness, shortness of breath, respiratory wheezings, subjective fever and chills. Patient is not vaccinated against Covid pneumonia. No prior similar history. Over the past week, she experienced general body weakness, shortness of breath, respiratory wheezing, subjective fever and chills. Denies any cough or sputum productions. Denies any chest pain or palpitations. She also have generalized muscle and joint aches as well as decreased appetite. It was also reported that she had an episode of syncope earlier yesterday which prompted her son to bring her to our ER for further evaluations. Vital signs within normal limits upon ER presentations. She was tested positive for Covid pneumonia in the ER. Labs were largely within normal limits with absence of leukocytosis with WBC 4.0. Chest x-ray showing mild left basilar infiltrate otherwise negative examinations. CT of the head without contrast did not show any acute intracranial pathologies. 07/04: Fever with Tmax 39.6 overnight. Was on 2L/min oxygen last night while sleeping, currently on room air. c/o general body weakness. c/o nonproductive cough. c/o fever and chills. 07/05 Patient states that about 3 to 4 days prior to mission she started feeling ill with fever chills some shortness of breath but no cough. She has since developed productive cough of sputum which sometimes is yellow per her. She is a bit more short of breath. Chest x-ray now does show bilateral infiltrates. Started on remdesivir and dexamethasone. Review of Systems: denies headache/fever/chills/nausea/vomiting/chest or abdominal pain/diarrhea. Otherwise see above. Constitutional Vitals: Vital Signs Temp Pulse Resp BP Pulse Ox 98.2 F 93 H 22 112/68 95 07/05/21 04:47 07/05/21 05:57 07/05/21 05:57 07/05/21 04:47 07/05/21 05:57 Period Temp Pulse Resp BP Sys/Saucedo Pulse Ox Last 24 Hr 97.8 F-100.8 F 60-93 16-24 100-138/63-84 91-100 Intake and Output 07/04/21 07/05/21 07/05/21 21:59 05:59 13:59 Intake Total 1500 350 Output Total 251 400 Balance 1249 -50 Weight 85.139 kg Intake & Output: Intake & Output 07/04/21 07/05/21 07/05/21 21:59 05:59 13:59 Intake Total 1500 350 Output Total 251 400 Balance 1249 -50 Weight 85.139 kg Intake: IV 1000 Sodium Chloride 0.9% 1,000 ml @ 1000 100 mls/hr IV .Q10H [facility] Rx#: [id number] Oral 500 350 Output: Void Amount 250 400 # of times incontinent of urine 1 Other: Meal Lunch Percent of Meal Consumed 100% Feeding Ability Assist with Tray Set Up Urine Appearance Clear Cloudy Urine Color Bright Yellow Bright Yellow Exam: General: Alert, Awake, No acute Distress Eyes/N/T: EOMI, Head/Neck: neck supple, CV: RRR, No murmurs, Pulm: Fine rales b/l, no wheezing Abd: soft, nontender, +BS x4 Ext: no clubbing/cyanosis, trace b/l LE edema Neuro: Alert, no focal deficits, moves all extremities, Skin: warm/dry OBJ DATA Labs CBC & Chem 7: 07/04/21 05:31 07/04/21 05:30 Labs: Abnormal Lab Results 07/04/21 07/03/21 07/03/21 05:30 13:11 13:11 WBC Plt Count 139 L MPV Neut % (Auto) 87.0 H Lymph % (Auto) 11.1 L Lymph # (Auto) 0.58 L [place] # (Auto) 0.09 L Potassium 3.2 L Chloride 111 H Carbon Dioxide 20 L 19 L POC Total CO2 Glucose 213 H POC Glucose Calcium 7.7 L 7.7 L POC WB Ioniz Calcium AST 50 H 37 H Total Protein 5.3 L 5.6 L Albumin 2.7 L 2.9 L Urine Appearance 07/03/21 07/02/21 07/02/21 02:50 22:28 22:16 WBC 4.0 L Plt Count MPV 10.5 H Neut % (Auto) Lymph % (Auto) Lymph # (Auto) 1.12 L [place] # (Auto) Potassium Chloride Carbon Dioxide POC Total CO2 21 L Glucose POC Glucose 129 H Calcium POC WB Ioniz Calcium 1.02 L AST Total Protein Albumin Urine Appearance Hazy A Meds: Medications Acetaminophen (Acetaminophen 325 Mg Tablet) 650 mg PO Q6HP PRN; Protocol PRN Reason: Per Pain Protocol/Fever > 101 Last Admin: 07/04/21 21:09 Dose: 650 mg Documented by: Albuterol/Ipratropium (Ipratropium/Albuterol 3 Ml Ampul.Neb) 3 ml NEB Q4HRT PRN PRN Reason: Wheezing Docusate Sodium (Docusate Sodium 100 Mg Capsule) 100 mg PO BID [facility] Last Admin: 07/04/21 20:29 Dose: 100 mg Documented by: Enoxaparin Sodium (Enoxaparin 40 Mg/0.4 Ml Syringe) 40 mg SQ DAILY [facility] Last Admin: 07/04/21 08:10 Dose: 40 mg Documented by: Ibuprofen (Ibuprofen 600 Mg Tablet) 600 mg PO QIDP PRN; Protocol PRN Reason: Per Pain Protocol/Fever > 101 Last Admin: 07/03/21 18:57 Dose: 600 mg Documented by: Nicotine (Nicotine 21 Mg Patch) 21 mg TOPICAL DAILY@1000 [facility] Last Admin: 07/04/21 11:06 Dose: 21 mg Documented by: Ondansetron HCl (Ondansetron 4 Mg/2 Ml Vial) 4 mg IV Q6HP PRN PRN Reason: Nausea And Vomiting Potassium Chloride (Potassium Chloride 20 Meq Tablet) 20 meq PO BIDCC [facility] Last Admin: 07/04/21 17:22 Dose: 20 meq Documented by: Senna (Sennosides 1 Tablet) 2 tab PO HS [facility] Last Admin: 07/04/21 20:29 Dose: 2 tab Documented by: Sodium Chloride (0.9 % Sodium Chloride 10 Ml Syringe) 10 ml IV Q8 [facility] Last Admin: 07/05/21 06:44 Dose: 10 ml Documented by: Trazodone HCl (Trazodone Hcl 50 Mg Tablet) 25 mg PO HSP PRN PRN Reason: Insomnia Last Admin: 07/04/21 21:03 Dose: 25 mg Documented by: A/P Narrative A/P Narrative: A: *CoVID pneumonia w/ : -febrile o/n *Acute hypoxic respiratory failure: -on 4L NC *Hypokalemia: RESOLVED *Tobacco abuse: Nicotine replacement therapy *Generalized weakness/deconditioning: P: -Remdesivir/dexamethasone -Supplemental O2, wean as able -IS/Acapella, prn nebs -Proning/mobilization/oob to chair -check crp/pct/abg -pt/ot -ppx: Lovenox Code status: Color Mixer Spent With Patient Time: Total time spent is greater than 50% in coordination of care (as documented) at patient's floor/unit and/or counseling patient: QUALITY VTE Deep Vein Thrombosis/Pulmonary Embolism Present on Admission: No
[2021-07-05] MEDS: ENOXAPARIN 40 MG/0.4 ML SYRINGE SQ SCH ×2 (08:33→22:34)
[2021-07-05] MEDS: DOCUSATE SODIUM 100 MG CAPSULE PO SCH ×2 (08:34→22:34)
[2021-07-05] MEDS: POTASSIUM CHLORIDE 20 MEQ TABLET PO SCH ×2 (08:34→17:04)
[2021-07-05] MEDS: ACETAMINOPHEN 325 MG TABLET PO PRN (08:35)
[2021-07-05] MEDS ORDERED: REMDESIVIR 100 MG in 0.9 % SODIUM CHLORIDE 250 ML IV SCH (09:00)
[2021-07-05] MEDS ORDERED: DEXAMETHASONE 4 MG TABLET PO SCH (09:00)
[2021-07-05 09:33] LABS: POC Creatinine 0.9 mg/dL (0.6-1.2)
[2021-07-05] MEDS ORDERED: DEXAMETHASONE 10 MG/ML VIAL IV ONE (09:59)
[2021-07-05] MEDS ORDERED: FUROSEMIDE 40 MG/4 ML VIAL IV ONE (10:11)
[2021-07-05] MEDS ORDERED: ALBUMIN HUMAN 12.5 GM/50 ML BAG IV ONE (10:11)
--- NOTE | 2021-07-05 10:46 | XRay Report ---
CLINICAL INFORMATION: SOB COMPARISON: 07/02/2021 FINDINGS: The heart is borderline enlarged. Small hiatal hernia noted. The remaining mediastinum and pulmonary vessels are unremarkable. There are now diffuse groundglass infiltrates throughout both lungs with relative sparing of the bases. No effusions IMPRESSION: Large, yet vague, diffuse groundglass infiltrates throughout both lungs. Consider infection or aspiration Interpreted and Authenticated by: Herrera Brandon 07/05/21
[2021-07-05 10:50] LABS: ALT/SGPT 19 U/L (<40); AST/SGOT 53 U/L (<32); Alkaline Phosphatase 81 U/L (39-117)
[2021-07-05] MEDS ORDERED: REMDESIVIR 200 MG in 0.9 % SODIUM CHLORIDE 250 ML IV ONE ×3 (11:00→14:55)
[2021-07-05] MEDS: NICOTINE 21 MG PATCH TOPICAL SCH (11:03)
[2021-07-05 11:26] LABS: Ferritin 670.1 ng/mL (30.0-400.0)
[2021-07-05] MEDS ORDERED: AZITHROMYCIN 500 MG in DEXTROSE 5% IN WATER 250 ML IV SCH (12:15)
[2021-07-05] MEDS ORDERED: cefTRIAXone 2 GM in DEXTROSE 5% IN WATER 50 ML IV SCH (13:00)
[2021-07-05] MEDS ORDERED: IPRATROPIUM/ALBUTEROL 3 ML AMPUL.NEB NEB PRN (14:55)
[2021-07-05] MEDS ORDERED: IBUPROFEN 600 MG TABLET PO PRN (14:55)
[2021-07-05] MEDS ORDERED: ENOXAPARIN 40 MG/0.4 ML SYRINGE SQ SCH (21:00)
[2021-07-05] MEDS ORDERED: traZODone HCL 50 MG TABLET PO PRN (21:00)
[2021-07-05] MEDS: SENNOSIDES 1 TABLET PO SCH (22:34)
[2021-07-06] MEDS: ONDANSETRON 4 MG/2 ML VIAL IV PRN (00:20)
[2021-07-06] MEDS: 0.9 % SODIUM CHLORIDE 10 ML SYRINGE IV SCH ×3 (05:33→20:13)
--- NOTE | 2021-07-06 07:44 | Internal Med Progress Note ---
SUBJECTIVE Subjective Patient information: Note initiated : 07/06/21 at 7:42 am Service Date, if different from initiated Date: [] Patient: Chayo Bermudez a 65 y/o F admitted on 07/05/21 for passsed out. Chief Complaint: [] Interval history: History of present illness: Ms. Bermudez is a 65 year old F no past medical history, presenting with 1 week history of general body weakness, shortness of breath, respiratory wheezings, subjective fever and chills. Patient is not vaccinated against Covid pneumonia. No prior similar history. Over the past week, she experienced general body weakness, shortness of breath, respiratory wheezing, subjective fever and chills. Denies any cough or sputum productions. Denies any chest pain or palpitations. She also have generalized muscle and joint aches as well as decreased appetite. It was also reported that she had an episode of syncope earlier yesterday which prompted her son to bring her to our ER for further evaluations. Vital signs within normal limits upon ER presentations. She was tested positive for Covid pneumonia in the ER. Labs were largely within normal limits with absence of leukocytosis with WBC 4.0. Chest x-ray showing mild left basilar infiltrate otherwise negative examinations. CT of the head without contrast did not show any acute intracranial pathologies. 07/04: Fever with Tmax 39.6 overnight. Was on 2L/min oxygen last night while sleeping, currently on room air. c/o general body weakness. c/o nonproductive cough. c/o fever and chills. 07/05 Patient states that about 3 to 4 days prior to mission she started feeling ill with fever chills some shortness of breath but no cough. She has since developed productive cough of sputum which sometimes is yellow per her. She is a bit more short of breath. Chest x-ray now does show bilateral infiltrates. Started on remdesivir and dexamethasone. 07/06 Patient states she is feeling a little bit better today. Feels her shortness of breath is slowly improving. Has minimal cough. Does have heartburn but no ot her complaints. She is on 40 L/min 40% FiO2 Review of Systems: denies headache/fever/chills/nausea/vomiting/chest or abdominal pain/diarrhea. Otherwise see above. Constitutional Vitals: Vital Signs Temp Pulse Resp BP Pulse Ox 97.4 F 58 L 21 126/74 93 07/06/21 04:00 07/06/21 07:39 07/06/21 07:39 07/06/21 06:00 07/06/21 07:39 Period Temp Pulse Resp BP Sys/Saucedo Pulse Ox Last 24 Hr 97.4 F-100.8 F 55-77 14-23 106-126/55-78 88-99 Intake and Output 07/05/21 07/06/21 07/06/21 21:59 05:59 13:59 Intake Total 450 480 Output Total 600 Balance -150 480 Weight 83.007 kg Intake & Output: Intake & Output 07/05/21 07/06/21 07/06/21 21:59 05:59 13:59 Intake Total 450 480 Output Total 600 Balance -150 480 Weight 83.007 kg Intake: IV 50 Rocephin 2 gm In Dextrose 5% in 50 Water 50 ml @ 100 mls/hr IV DAILY@1000 [facility] Rx#:[id number] Oral 400 480 Output: Void Amount 600 Other: Meal Dinner Percent of Meal Consumed 75% Feeding Ability Assist with Tray Set Up Urine Appearance Clear Urine Color Dark Yellow Urine Odor Strong Exam: General: Alert, Awake, No acute Distress Eyes/N/T: EOMI, Head/Neck: neck supple, CV: RRR, No murmurs, Pulm: Fine rales b/l and rhonchi, no wheezing Abd: soft, nontender, +BS x4 Ext: no clubbing/cyanosis, trace b/l LE edema Neuro: Alert, no focal deficits, moves all extremities, Skin: warm/dry OBJ DATA Labs CBC & Chem 7: 07/04/21 05:31 07/06/21 05:01 Labs: Abnormal Lab Results 07/05/21 07/05/21 07/05/21 10:52 09:17 09:17 Plt Count Neut % (Auto) Lymph % (Auto) Lymph # (Auto) [place] # (Auto) D-Dimer 1.24 H Potassium Chloride Carbon Dioxide Glucose Calcium Ferritin 670.1 H AST C-Reactive Protein 10.70 H Total Protein Albumin Procalcitonin 1.00 H 07/05/21 07/04/21 07/03/21 09:17 05:30 13:11 Plt Count Neut % (Auto) Lymph % (Auto) Lymph # (Auto) [place] # (Auto) D-Dimer Potassium 3.2 L Chloride 111 H Carbon Dioxide 20 L 19 L Glucose 213 H Calcium 7.7 L 7.7 L Ferritin AST 53 H 50 H 37 H C-Reactive Protein Total Protein 5.3 L 5.6 L Albumin 2.7 L 2.9 L Procalcitonin 07/03/21 13:11 Plt Count 139 L Neut % (Auto) 87.0 H Lymph % (Auto) 11.1 L Lymph # (Auto) 0.58 L [place] # (Auto) 0.09 L D-Dimer Potassium Chloride Carbon Dioxide Glucose Calcium Ferritin AST C-Reactive Protein Total Protein Albumin Procalcitonin Meds: Medications Acetaminophen (Acetaminophen 325 Mg Tablet) 650 mg PO Q6HP PRN; Protocol PRN Reason: Per Pain Protocol/Fever > 101 Albuterol/Ipratropium (Ipratropium/Albuterol 3 Ml Ampul.Neb) 3 ml NEB Q4HRT PRN PRN Reason: Wheezing Dexamethasone (Dexamethasone 4 Mg Tablet) 6 mg PO DAILY [facility] Docusate Sodium (Docusate Sodium 100 Mg Capsule) 100 mg PO BID [facility] Last Admin: 07/05/21 22:34 Dose: 100 mg Documented by: Enoxaparin Sodium (Enoxaparin 40 Mg/0.4 Ml Syringe) 40 mg SQ BID [facility] Last Admin: 07/05/21 22:34 Dose: 40 mg Documented by: Azithromycin 500 mg/ Dextrose 250 mls @ 250 mls/hr IV DAILY@1100 [facility]; Protocol Stop: 07/07/21 11:59 Ceftriaxone Sodium 2 gm/ (Dextrose) 50 mls @ 100 mls/hr IV DAILY@1000 [facility]; Protocol REMDESIVIR 100 mg/ Sodium (Chloride) 250 mls @ 500 mls/hr IV DAILY [facility] Stop: 07/09/21 09:29 Ibuprofen (Ibuprofen 600 Mg Tablet) 600 mg PO QIDP PRN; Protocol PRN Reason: Per Pain Protocol/Fever > 101 Nicotine (Nicotine 21 Mg Patch) 21 mg TOPICAL DAILY@1000 [facility] Ondansetron HCl (Ondansetron 4 Mg/2 Ml Vial) 4 mg IV Q6HP PRN PRN Reason: Nausea And Vomiting Last Admin: 07/06/21 00:20 Dose: 4 mg Documented by: Potassium Chloride (Potassium Ch[facility] 20 Meq [facility]t) [facility] Last Admin: 07/05/21 17:04 Dose: 20 meq Documented by: Senna (Sennosides 1 Tablet) 2 tab PO HS [facility] Last Admin: 07/05/21 22:34 Dose: 2 tab Documented by: Sodium Chloride (0.9 % Sodium Chloride 10 Ml Syringe) 10 ml IV Q8 [facility] Last Admin: 07/06/21 05:33 Dose: 10 ml Documented by: Trazodone HCl (Trazodone Hcl 50 Mg Tablet) 25 mg PO HSP PRN PRN Reason: Insomnia A/P Narrative A/P Narrative: A: *CoVID pneumonia w/ARDS, concern for bacterial coinfection: -afebrile o/n *Acute hypoxic respiratory failure: -on vapotherm 40lpm/40% *Hypokalemia: RESOLVED *Tobacco abuse: Nicotine replacement therapy *Generalized weakness/deconditioning: P: -Remdesivir/dexamethasone -empric abx -Supplemental O2, wean as able -IS/Acapella, prn nebs -Proning/mobilization/oob to chair -f/u crp/pct -pt/ot -ppx: Lovenox bid Code status: Drafter Castings Spent With Patient Time: Total time spent is greater than 50% in coordination of care (as documented) at patient's floor/unit and/or counseling patient: QUALITY VTE Deep Vein Thrombosis/Pulmonary Embolism Present on Admission: No
[2021-07-06 07:50] LABS: Ferritin 611.5 ng/mL (30.0-400.0)
[2021-07-06] MEDS: POTASSIUM CHLORIDE 20 MEQ TABLET PO SCH ×2 (08:33→18:11)
[2021-07-06] MEDS: DOCUSATE SODIUM 100 MG CAPSULE PO SCH ×2 (08:33→20:13)
[2021-07-06] MEDS: ENOXAPARIN 40 MG/0.4 ML SYRINGE SQ SCH ×2 (08:33→20:13)
[2021-07-06] MEDS: DEXAMETHASONE 4 MG TABLET PO SCH (08:34)
[2021-07-06] MEDS ORDERED: DEXAMETHASONE 4 MG TABLET PO SCH (09:00)
[2021-07-06] MEDS ORDERED: REMDESIVIR 100 MG in 0.9 % SODIUM CHLORIDE 250 ML IV SCH (09:00)
[2021-07-06] MEDS ORDERED: ALBUMIN HUMAN 12.5 GM/50 ML BAG IV ONE (09:23)
[2021-07-06] MEDS ORDERED: FUROSEMIDE 40 MG/4 ML VIAL IV ONE (09:23)
[2021-07-06] MEDS ORDERED: MAG HYDROX/AL HYDROX/SIMETH 30 ML ORAL.SUSP PO ONE (09:23)
[2021-07-06 09:24] LABS: Hematocrit 41.2 % (34.1-44.9); Hemoglobin 13.3 g/dL (11.2-15.7); Mean Cell Volume 88.4 fL (80.0-100.0); Mean Corpuscular HGB Conc 32.3 g/dL (31.0-36.0); Mean Platelet Volume 11.5 fL (7.4-10.4); Platelet Count 166 K/mcL (140-440); RBC 4.66 M/mcL (3.59-5.38); Red Cell Distribution Width 13.6 % (11.5-14.5); WBC 6.3 K/mcL (4.5-11.0)
[2021-07-06 09:27] LABS: Band Neutrophils % 13 % (0-10); Lymphocytes % 12 % (15-49); Monocytes % (Manual) 3 % (1-12); Platelet Estimate NORMAL (Normal); RBC Morphology NORMAL (Normal); Reactive Lymphocytes 3 % (0-2); Segmented Neutrophils % 69 % (38-78)
[2021-07-06] MEDS: cefTRIAXone 2 GM in DEXTROSE 5% IN WATER 50 ML IV SCH (09:33)
[2021-07-06] MEDS: NICOTINE 21 MG PATCH TOPICAL SCH (09:33)
[2021-07-06 09:37] LABS: ALT/SGPT 27 U/L (<40); AST/SGOT 61 U/L (<32); Alkaline Phosphatase 89 U/L (39-117); Bilirubin,Direct < 0.2 mg/dL (0-0.3); Bilirubin,Total 0.3 mg/dL (0.1-1.0); Blood Urea Nitrogen 14 mg/dL (8-23); Calcium 8.8 mg/dL (8.6-10.4); Carbon Dioxide 27 mmol/L (22-30); Chloride 104 mmol/L (96-108); Globulin 3.1 gm/dL (2.2-3.7); Glomerular Filtration Rate 78; Glucose 160 mg/dL (70-105); Lactate Dehydrogenase 491 U/L (135-225); Phosphorous 3.8 mg/dL (2.5-4.5); Triglycerides 86 mg/dL (<150); Uric Acid 3.9 mg/dL (2.5-8.0)
[2021-07-06] MEDS: AZITHROMYCIN 500 MG in DEXTROSE 5% IN WATER 250 ML IV SCH (10:13)
[2021-07-06] MEDS: REMDESIVIR 100 MG in 0.9 % SODIUM CHLORIDE 250 ML IV SCH (11:21)
[2021-07-06] MEDS: SENNOSIDES 1 TABLET PO SCH (20:13)
[2021-07-06] MEDS: MAG HYDROX/AL HYDROX/SIMETH 30 ML ORAL.SUSP PO PRN (20:55)
[2021-07-07] MEDS: 0.9 % SODIUM CHLORIDE 10 ML SYRINGE IV SCH ×3 (05:21→22:00)
--- NOTE | 2021-07-07 07:39 | Internal Med Progress Note ---
SUBJECTIVE Subjective Patient information: Note initiated : 07/07/21 at 7:37 am Service Date, if different from initiated Date: [] Patient: Chayo Bermudez a 65 y/o F admitted on 07/05/21 for passsed out. Chief Complaint: [] Interval history: History of present illness: Ms. Bermudez is a 65 year old F no past medical history, presenting with 1 week history of general body weakness, shortness of breath, respiratory wheezings, subjective fever and chills. Patient is not vaccinated against Covid pneumonia. No prior similar history. Over the past week, she experienced general body weakness, shortness of breath, respiratory wheezing, subjective fever and chills. Denies any cough or sputum productions. Denies any chest pain or palpitations. She also have generalized muscle and joint aches as well as decreased appetite. It was also reported that she had an episode of syncope earlier yesterday which prompted her son to bring her to our ER for further evaluations. Vital signs within normal limits upon ER presentations. She was tested positive for Covid pneumonia in the ER. Labs were largely within normal limits with absence of leukocytosis with WBC 4.0. Chest x-ray showing mild left basilar infiltrate otherwise negative examinations. CT of the head without contrast did not show any acute intracranial pathologies. 07/04: Fever with Tmax 39.6 overnight. Was on 2L/min oxygen last night while sleeping, currently on room air. c/o general body weakness. c/o nonproductive cough. c/o fever and chills. 07/05 Patient states that about 3 to 4 days prior to mission she started feeling ill with fever chills some shortness of breath but no cough. She has since developed productive cough of sputum which sometimes is yellow per her. She is a bit more short of breath. Chest x-ray now does show bilateral infiltrates. Started on remdesivir and dexamethasone. 07/06 Patient states she is feeling a little bit better today. Feels her shortness of breath is slowly improving. Has minimal cough. Does have heartburn but no ot her complaints. She is on 40 L/min 40% FiO2 07/07 Patient thinks she feels a little better today although FiO2 had to be increased to 50% from 35 yesterday afternoon. Minimal cough. No other pains or complaints. Inflammatory markers improving. Review of Systems: denies headache/fever/chills/nausea/vomiting/chest or abdominal pain/diarrhea. Otherwise see above. Constitutional Vitals: Vital Signs Temp Pulse Resp BP Pulse Ox 97.5 F 50 L 21 115/76 94 07/07/21 04:00 07/07/21 06:01 07/07/21 06:01 07/07/21 06:01 07/07/21 06:01 Period Temp Pulse Resp BP Sys/Saucedo Pulse Ox Last 24 Hr 97.2 F-98.5 F 50-70 12-24 102-130/64-111 89-100 Intake and Output 07/06/21 07/07/21 07/07/21 21:59 05:59 13:59 Intake Total 240 240 Output Total 1601 Balance -1361 240 Weight 83.098 kg Intake & Output: Intake & Output 07/06/21 07/07/21 07/07/21 21:59 05:59 13:59 Intake Total 240 240 Output Total 1601 Balance -1361 240 Weight 83.098 kg Intake: Oral 240 240 Output: Void Amount 1600 # of times incontinent of urine 1 Other: Meal Dinner Percent of Meal Consumed 25% Feeding Ability Assist with Tray Set Up Urine Appearance Clear Urine Color Dark Yellow Urine Odor Strong Exam: General: Alert, Awake, No acute Distress Eyes/N/T: EOMI, Head/Neck: neck supple, CV: RRR, No murmurs, Pulm: Fine rales b/l and rhonchi, no wheezing Abd: soft, nontender, +BS x4 Ext: no clubbing/cyanosis, trace b/l LE edema Neuro: Alert, no focal deficits, moves all extremities, Skin: warm/dry OBJ DATA Labs CBC & Chem 7: 07/06/21 05:01 07/07/21 05:00 Labs: Abnormal Lab Results 07/06/21 07/06/21 07/06/21 08:20 05:01 05:00 MPV 11.5 H Band Neutrophils % 13 H Lymphocytes % 12 L Reactive Lymphocytes 3 H D-Dimer Chloride Carbon Dioxide Glucose 160 H Calcium Ferritin 611.5 H GGT 46 H AST 61 H Lactate Dehydrogenase 491 H C-Reactive Protein Total Protein Albumin 3.0 L Procalcitonin 07/06/21 07/06/21 07/06/21 05:00 05:00 05:00 MPV Band Neutrophils % Lymphocytes % Reactive Lymphocytes D-Dimer 9.39 H Chloride Carbon Dioxide Glucose Calcium Ferritin GGT AST Lactate Dehydrogenase C-Reactive Protein 11.40 H Total Protein Albumin Procalcitonin 0.49 H 07/05/21 07/05/21 07/05/21 10:52 09:17 09:17 MPV Band Neutrophils % Lymphocytes % Reactive Lymphocytes D-Dimer 1.24 H Chloride Carbon Dioxide Glucose Calcium Ferritin 670.1 H GGT AST Lactate Dehydrogenase C-Reactive Protein 10.70 H Total Protein Albumin Procalcitonin 1.00 H 07/05/21 07/04/21 09:17 05:30 MPV Band Neutrophils % Lymphocytes % Reactive Lymphocytes D-Dimer Chloride 111 H Carbon Dioxide 20 L Glucose Calcium 7.7 L Ferritin GGT AST 53 H 50 H Lactate Dehydrogenase C-Reactive Protein Total Protein 5.3 L Albumin 2.7 L Procalcitonin Meds: Medications Acetaminophen (Acetaminophen 325 Mg Tablet) 650 mg PO Q6HP PRN; Protocol PRN Reason: Per Pain Protocol/Fever > 101 Al Hydrox/Mg Hydrox/Simethicone (Mag Hydrox/Al Hydrox/Simeth 30 Ml Oral.Susp) 30 ml PO Q4-6HP PRN PRN Reason: Dyspepsia Last Admin: 07/06/21 20:55 Dose: 30 ml Documented by: Albuterol/Ipratropium (Ipratropium/Albuterol 3 Ml Ampul.Neb) 3 ml NEB Q4HRT PRN PRN Reason: Wheezing Dexamethasone (Dexamethasone 4 Mg Tablet) 6 mg PO DAILY [facility] Last Admin: 07/06/21 08:34 Dose: 6 mg Documented by: Docusate Sodium (Docusate Sodium 100 Mg Capsule) 100 mg PO BID [facility] Last Admin: 07/06/21 20:13 Dose: 100 mg Documented by: Enoxaparin Sodium (Enoxaparin 40 Mg/0.4 Ml Syringe) 40 mg SQ BID [facility] Last Admin: 07/06/21 20:13 Dose: 40 mg Documented by: Azithromycin 500 mg/ Dextrose 250 mls @ 250 mls/hr IV DAILY@1100 [facility]; Protocol Stop: 07/07/21 11:59 Last Infusion: 07/06/21 11:18 Dose: Infused Documented by: Ceftriaxone Sodium 2 gm/ (Dextrose) 50 mls @ 100 mls/hr IV DAILY@1000 [facility]; Protocol Last Infusion: 07/06/21 10:18 Dose: Infused Documented by: REMDESIVIR 100 mg/ Sodium (Chloride) 250 mls @ 500 mls/hr IV DAILY [facility] Stop: 07/09/21 09:29 Last Infusion: 07/06/21 11:57 Dose: Infused Documented by: Ibuprofen (Ibuprofen 600 Mg Tablet) 600 mg PO QIDP PRN; Protocol PRN Reason: Per Pain Protocol/Fever > 101 Nicotine (Nicotine 21 Mg Patch) 21 mg TOPICAL DAILY@1000 [facility] Last Admin: 07/06/21 09:33 Dose: 21 mg Documented by: Ondansetron HCl (Ondansetron 4 Mg/2 Ml Vial) 4 mg IV Q6HP PRN PRN Reason: Nausea And Vomiting Last Admin: 07/06/21 00:20 Dose: 4 mg Documented by: Potassium Chloride (Potassium Chloride 20 Meq Tablet) 20 meq PO BIDCC [facility] Last Admin: 07/06/21 18:11 Dose: 20 meq Documented by: Senna (Sennosides 1 Tablet) 2 tab PO HS [facility] Last Admin: 07/06/21 20:13 Dose: 2 tab Documented by: Sodium Chloride (0.9 % Sodium Chloride 10 Ml Syringe) 10 ml IV Q8 [facility] Last Admin: 07/07/21 05:21 Dose: 10 ml Documented by: Trazodone HCl (Trazodone Hcl 50 Mg Tablet) 25 mg PO HSP PRN PRN Reason: Insomnia A/P Narrative A/P Narrative: A: *CoVID pneumonia w/ARDS, concern for bacterial coinfection: -afebrile again o/n *Acute hypoxic respiratory failure: -on vapotherm 40lpm/40% *Hypokalemia: RESOLVED *Tobacco abuse: Nicotine replacement therapy *Generalized weakness/deconditioning: P: -Remdesivir/dexamethasone -empric abx -Supplemental O2, wean as able -IS/Acapella, prn nebs -Proning/mobilization/oob to chair -f/u crp/pct -pt/ot -ppx: Lovenox bid Code status: Dining Room Manager Spent With Patient Time: Total time spent is greater than 50% in coordination of care (as documented) at patient's floor/unit and/or counseling patient: QUALITY VTE Deep Vein Thrombosis/Pulmonary Embolism Present on Admission: No
[2021-07-07] MEDS: MAG HYDROX/AL HYDROX/SIMETH 30 ML ORAL.SUSP PO PRN (08:13)
[2021-07-07 08:27] LABS: Ferritin 537.5 ng/mL (30.0-400.0)
[2021-07-07 08:30] LABS: ALT/SGPT 35 U/L (<40); AST/SGOT 52 U/L (<32); Albumin 3.3 gm/dL (3.2-5.2); Albumin/Globulin Ratio 1.1 (1.0-2.3); Alkaline Phosphatase 84 U/L (39-117); Bilirubin,Direct < 0.2 mg/dL (0-0.3); Bilirubin,Total 0.3 mg/dL (0.1-1.0); Blood Urea Nitrogen 21 mg/dL (8-23); Calcium 8.9 mg/dL (8.6-10.4); Carbon Dioxide 22 mmol/L (22-30); Chloride 104 mmol/L (96-108); Globulin 3.1 gm/dL (2.2-3.7); Glomerular Filtration Rate 92; Glucose 125 mg/dL (70-105); Lactate Dehydrogenase 476 U/L (135-225); Phosphorous 2.9 mg/dL (2.5-4.5); Triglycerides 81 mg/dL (<150); Uric Acid 3.9 mg/dL (2.5-8.0)
[2021-07-07] MEDS: ONDANSETRON 4 MG/2 ML VIAL IV PRN (08:42)
[2021-07-07] MEDS: DOCUSATE SODIUM 100 MG CAPSULE PO SCH ×2 (08:42→20:50)
[2021-07-07] MEDS: DEXAMETHASONE 4 MG TABLET PO SCH (08:42)
[2021-07-07] MEDS: POTASSIUM CHLORIDE 20 MEQ TABLET PO SCH ×2 (08:42→16:26)
[2021-07-07] MEDS: ENOXAPARIN 40 MG/0.4 ML SYRINGE SQ SCH ×2 (08:43→20:50)
[2021-07-07] MEDS ORDERED: FUROSEMIDE 20 MG/2 ML VIAL IV ONE (08:53)
[2021-07-07] MEDS ORDERED: POLYETHYLENE GLYCOL 3350 17 GM PACKET PO PRN (09:16)
--- NOTE | 2021-07-07 09:32 | XRay Report ---
CLINICAL INFORMATION: f/u infiltrate COMPARISON: 07/05/2021 FINDINGS: Moderate cardiomegaly is unchanged. Small hiatal hernia again noted. The mediastinum and pulmonary vasculature are otherwise unremarkable. Bilateral infiltrates or edema have nearly cleared with minimal residual perihilar region. No effusions. IMPRESSION: Near complete interval resolution in bilateral infiltrates or edema. Interpreted and Authenticated by: Herrera Brandon 07/07/21
[2021-07-07] MEDS: cefTRIAXone 2 GM in DEXTROSE 5% IN WATER 50 ML IV SCH (10:05)
[2021-07-07] MEDS: REMDESIVIR 100 MG in 0.9 % SODIUM CHLORIDE 250 ML IV SCH (10:48)
[2021-07-07] MEDS: NICOTINE 21 MG PATCH TOPICAL SCH (11:42)
[2021-07-07] MEDS: AZITHROMYCIN 500 MG in DEXTROSE 5% IN WATER 250 ML IV SCH (11:42)
[2021-07-07] MEDS ORDERED: TOCILIZUMAB 600 MG in 0.9 % SODIUM CHLORIDE 70 ML IV ONE (16:00)
[2021-07-07] MEDS: SENNOSIDES 1 TABLET PO SCH (20:50)
[2021-07-08] MEDS: MAG HYDROX/AL HYDROX/SIMETH 30 ML ORAL.SUSP PO PRN (02:06)
[2021-07-08] MEDS: 0.9 % SODIUM CHLORIDE 10 ML SYRINGE IV SCH ×3 (08:49→20:49)
[2021-07-08] MEDS: POTASSIUM CHLORIDE 20 MEQ TABLET PO SCH ×2 (08:50→16:28)
[2021-07-08] MEDS: DOCUSATE SODIUM 100 MG CAPSULE PO SCH ×2 (08:50→20:48)
[2021-07-08] MEDS: ENOXAPARIN 40 MG/0.4 ML SYRINGE SQ SCH ×2 (08:50→20:49)
[2021-07-08] MEDS: MAGNESIUM HYDROXIDE 30 ML ORAL.SUSP PO PRN (08:50)
[2021-07-08] MEDS: DEXAMETHASONE 4 MG TABLET PO SCH (08:50)
[2021-07-08] MEDS: cefTRIAXone 2 GM in DEXTROSE 5% IN WATER 50 ML IV SCH (08:51)
[2021-07-08] MEDS: NICOTINE 21 MG PATCH TOPICAL SCH (08:51)
[2021-07-08 09:20] LABS: ALT/SGPT 28 U/L (<40); AST/SGOT 28 U/L (<32); Albumin 3.4 gm/dL (3.2-5.2); Albumin/Globulin Ratio 1.2 (1.0-2.3); Alkaline Phosphatase 79 U/L (39-117); Bilirubin,Direct < 0.2 mg/dL (0-0.3); Bilirubin,Total 0.3 mg/dL (0.1-1.0); Blood Urea Nitrogen 24 mg/dL (8-23); Calcium 8.9 mg/dL (8.6-10.4); Carbon Dioxide 26 mmol/L (22-30); Chloride 105 mmol/L (96-108); Globulin 2.8 gm/dL (2.2-3.7); Glomerular Filtration Rate 92; Glucose 131 mg/dL (70-105); Lactate Dehydrogenase 394 U/L (135-225); Phosphorous 3.5 mg/dL (2.5-4.5); Triglycerides 91 mg/dL (<150); Uric Acid 4.3 mg/dL (2.5-8.0)
[2021-07-08] MEDS: ACETAMINOPHEN 325 MG TABLET PO PRN ×2 (09:20→16:27)
--- NOTE | 2021-07-08 09:22 | Internal Med Progress Note ---
SUBJECTIVE Subjective Patient information: Note initiated : 07/08/21 at 9:20 am Service Date, if different from initiated Date: [] Patient: Chayo Bermudez a 65 y/o F admitted on 07/05/21 for passsed out. Chief Complaint: [] Interval history: History of present illness: Ms. Bermudez is a 65 year old F no past medical history, presenting with 1 week history of general body weakness, shortness of breath, respiratory wheezings, subjective fever and chills. Patient is not vaccinated against Covid pneumonia. No prior similar history. Over the past week, she experienced general body weakness, shortness of breath, respiratory wheezing, subjective fever and chills. Denies any cough or sputum productions. Denies any chest pain or palpitations. She also have generalized muscle and joint aches as well as decreased appetite. It was also reported that she had an episode of syncope earlier yesterday which prompted her son to bring her to our ER for further evaluations. Vital signs within normal limits upon ER presentations. She was tested positive for Covid pneumonia in the ER. Labs were largely within normal limits with absence of leukocytosis with WBC 4.0. Chest x-ray showing mild left basilar infiltrate otherwise negative examinations. CT of the head without contrast did not show any acute intracranial pathologies. 07/04: Fever with Tmax 39.6 overnight. Was on 2L/min oxygen last night while sleeping, currently on room air. c/o general body weakness. c/o nonproductive cough. c/o fever and chills. 07/05 Patient states that about 3 to 4 days prior to mission she started feeling ill with fever chills some shortness of breath but no cough. She has since developed productive cough of sputum which sometimes is yellow per her. She is a bit more short of breath. Chest x-ray now does show bilateral infiltrates. Started on remdesivir and dexamethasone. 07/06 Patient states she is feeling a little bit better today. Feels her shortness of breath is slowly improving. Has minimal cough. Does have heartburn but no ot her complaints. She is on 40 L/min 40% FiO2 07/07 Patient thinks she feels a little better today although FiO2 had to be increased to 50% from 35 yesterday afternoon. Minimal cough. No other pains or complaints. Inflammatory markers improving. 07/08 Patient says she feels tired and weak. Has occasional cough. She is requiring less oxygen and is now down to 8 L high flow. Chest x-ray yesterday showed much improvement. Review of Systems: denies headache/fever/chills/nausea/vomiting/chest or abdominal pain/diarrhea. Otherwise see above. Constitutional Vitals: Vital Signs Temp Pulse Resp BP Pulse Ox 97 F 47 L 15 136/69 94 07/08/21 08:01 07/08/21 09:08 07/08/21 09:08 07/08/21 08:01 07/08/21 09:08 Period Temp Pulse Resp BP Sys/Saucedo Pulse Ox Last 24 Hr 97 F-98.6 F 47-73 12-26 92-147/56-83 35-100 Intake and Output 07/07/21 07/08/21 07/08/21 21:59 05:59 13:59 Intake Total 1300 500 Output Total 725 550 Balance 575 -50 Weight 81.692 kg Intake & Output: Intake & Output 07/07/21 07/08/21 07/08/21 21:59 05:59 13:59 Intake Total 1300 500 Output Total 725 550 Balance 575 -50 Weight 81.692 kg Intake: Nourishment/Supplement quantity 240 (ml) IV 100 Actemra 600 mg In Sodium 100 Chloride 0.9% 70 ml @ 100 mls/ hr IV ONCE ONE Rx#:[id number] Oral 960 500 Output: Void Amount 725 550 Other: Meal Dinner Percent of Meal Consumed 50% Feeding Ability Independent Urine Appearance Clear Clear Urine Color Bright Yellow Bright Yellow Urine Odor Normal Normal Exam: General: Alert, Awake, No acute Distress Eyes/N/T: EOMI, Head/Neck: neck supple, CV: RRR, No murmurs, Pulm: Fine rales rhonchi much improved today, no wheezing Abd: soft, nontender, +BS x4 Ext: no clubbing/cyanosis, trace b/l LE edema Neuro: Alert, no focal deficits, moves all extremities, Skin: warm/dry OBJ DATA Labs CBC & Chem 7: 07/06/21 05:01 07/08/21 08:27 Labs: Abnormal Lab Results 07/08/21 07/08/21 07/07/21 08:27 05:43 05:00 MPV Band Neutrophils % Lymphocytes % Reactive Lymphocytes D-Dimer BUN 24 H Glucose 131 H Ferritin 537.5 H GGT 50 H AST Lactate Dehydrogenase 394 H C-Reactive Protein 3.10 H Albumin Procalcitonin 07/07/21 07/07/21 07/07/21 05:00 05:00 05:00 MPV Band Neutrophils % Lymphocytes % Reactive Lymphocytes D-Dimer 0.96 H BUN Glucose 125 H Ferritin GGT 49 H AST 52 H Lactate Dehydrogenase 476 H C-Reactive Protein 5.90 H Albumin Procalcitonin 0.28 H 07/06/21 07/06/21 07/06/21 08:20 05:01 05:00 MPV 11.5 H Band Neutrophils % 13 H Lymphocytes % 12 L Reactive Lymphocytes 3 H D-Dimer BUN Glucose 160 H Ferritin 611.5 H GGT 46 H AST 61 H Lactate Dehydrogenase 491 H C-Reactive Protein Albumin 3.0 L Procalcitonin 07/06/21 07/06/21 07/05/21 05:00 05:00 10:52 MPV Band Neutrophils % Lymphocytes % Reactive Lymphocytes D-Dimer 1.24 H BUN Glucose Ferritin GGT AST Lactate Dehydrogenase C-Reactive Protein 11.40 H Albumin Procalcitonin 0.49 H 07/05/21 07/05/21 07/05/21 09:17 09:17 09:17 MPV Band Neutrophils % Lymphocytes % Reactive Lymphocytes D-Dimer BUN Glucose Ferritin 670.1 H GGT AST 53 H Lactate Dehydrogenase C-Reactive Protein 10.70 H Albumin Procalcitonin 1.00 H Meds: Medications Acetaminophen (Acetaminophen 325 Mg Tablet) 650 mg PO Q6HP PRN; Protocol PRN Reason: Per Pain Protocol/Fever > 101 Al Hydrox/Mg Hydrox/Simethicone (Mag Hydrox/Al Hydrox/Simeth 30 Ml Oral.Susp) 30 ml PO Q4-6HP PRN PRN Reason: Dyspepsia Last Admin: 07/08/21 02:06 Dose: 30 ml Documented by: Albuterol/Ipratropium (Ipratropium/Albuterol 3 Ml Ampul.Neb) 3 ml NEB Q4HRT PRN PRN Reason: Wheezing Dexamethasone (Dexamethasone 4 Mg Tablet) 6 mg PO DAILY [facility] Last Admin: 07/08/21 08:50 Dose: 6 mg Documented by: Docusate Sodium (Docusate Sodium 100 Mg Capsule) 100 mg PO BID [facility] Last Admin: 07/08/21 08:50 Dose: 100 mg Documented by: Enoxaparin Sodium (Enoxaparin 40 Mg/0.4 Ml Syringe) 40 mg SQ BID [facility] Last Admin: 07/08/21 08:50 Dose: 40 mg Documented by: Ceftriaxone Sodium 2 gm/ (Dextrose) 50 mls @ 100 mls/hr IV DAILY@1000 [facility]; Protocol Last Admin: 07/08/21 08:51 Dose: 100 mls/hr Documented by: REMDESIVIR 100 mg/ Sodium (Chloride) 250 mls @ 500 mls/hr IV DAILY [facility] Stop: 07/09/21 09:29 Last Infusion: 07/07/21 11:20 Dose: Infused Documented by: Ibuprofen (Ibuprofen 600 Mg Tablet) 600 mg PO QIDP PRN; Protocol PRN Reason: Per Pain Protocol/Fever > 101 Magnesium Hydroxide (Magnesium Hydroxide 30 Ml Oral.Susp) 30 ml PO DAILYP PRN PRN Reason: Constipation Last Admin: 07/08/21 08:50 Dose: 30 ml Documented by: Nicotine (Nicotine 21 Mg Patch) 21 mg TOPICAL DAILY@1000 [facility] Last Admin: 07/08/21 08:51 Dose: 21 mg Documented by: Ondansetron HCl (Ondansetron 4 Mg/2 Ml Vial) 4 mg IV Q6HP PRN PRN Reason: Nausea And Vomiting Last Admin: 07/07/21 08:42 Dose: 4 mg Documented by: Polyethylene Glycol (Polyethylene Glycol 3350 17 Gm Packet) 17 gm PO DAILYP PRN PRN Reason: Constipation Potassium Chloride (Potassium Chloride 20 Meq Tablet) 20 meq PO BIDCC [facility] Last Admin: 07/08/21 08:50 Dose: 20 meq Documented by: Senna (Sennosides 1 Tablet) 2 tab PO HS [facility] Last Admin: 07/07/21 20:50 Dose: 2 tab Documented by: Sodium Chloride (0.9 % Sodium Chloride 10 Ml Syringe) 10 ml IV Q8 [facility] Last Admin: 07/08/21 08:49 Dose: 10 ml Documented by: Trazodone HCl (Trazodone Hcl 50 Mg Tablet) 25 mg PO HSP PRN PRN Reason: Insomnia A/P Narrative A/P Narrative: A: *CoVID pneumonia w/ARDS, ?bacterial coinfection: -afebrile again o/n -inflammatory markers improving *Acute hypoxic respiratory failure: -down to 8L HFNC *Hypokalemia: RESOLVED *Tobacco abuse: Nicotine replacement therapy *Generalized weakness/deconditioning: P: -Remdesivir/dexamethasone, -empric abx, pct improved -Supplemental O2, wean as able -IS/Acapella, prn nebs -Proning/mobilization/oob to chair -f/u crp/pct -pt/ot -ppx: Lovenox bid Code status: Milieu Manager Spent With Patient Time: Total time spent is greater than 50% in coordination of care (as documented) at patient's floor/unit and/or counseling patient: QUALITY VTE Deep Vein Thrombosis/Pulmonary Embolism Present on Admission: No
[2021-07-08] MEDS: REMDESIVIR 100 MG in 0.9 % SODIUM CHLORIDE 250 ML IV SCH (12:23)
[2021-07-08] MEDS ORDERED: FLEETS ADULT ENEMA PR PRN (17:04)
[2021-07-08] MEDS ORDERED: FLEETS ADULT ENEMA PR ONE (17:20)
[2021-07-08] MEDS: SENNOSIDES 1 TABLET PO SCH (20:48)
[2021-07-09] MEDS: 0.9 % SODIUM CHLORIDE 10 ML SYRINGE IV SCH ×3 (07:37→21:26)
[2021-07-09] MEDS: POTASSIUM CHLORIDE 20 MEQ TABLET PO SCH ×2 (07:48→17:32)
--- NOTE | 2021-07-09 08:00 | Internal Med Progress Note ---
SUBJECTIVE Subjective Patient information: Note initiated : 07/09/21 at 7:59 am Service Date, if different from initiated Date: [] Patient: Chayo Bermudez a 65 y/o F admitted on 07/05/21 for passsed out. Chief Complaint: [] Interval history: History of present illness: Ms. Bermudez is a 65 year old F no past medical history, presenting with 1 week history of general body weakness, shortness of breath, respiratory wheezings, subjective fever and chills. Patient is not vaccinated against Covid pneumonia. No prior similar history. Over the past week, she experienced general body weakness, shortness of breath, respiratory wheezing, subjective fever and chills. Denies any cough or sputum productions. Denies any chest pain or palpitations. She also have generalized muscle and joint aches as well as decreased appetite. It was also reported that she had an episode of syncope earlier yesterday which prompted her son to bring her to our ER for further evaluations. Vital signs within normal limits upon ER presentations. She was tested positive for Covid pneumonia in the ER. Labs were largely within normal limits with absence of leukocytosis with WBC 4.0. Chest x-ray showing mild left basilar infiltrate otherwise negative examinations. CT of the head without contrast did not show any acute intracranial pathologies. 07/04: Fever with Tmax 39.6 overnight. Was on 2L/min oxygen last night while sleeping, currently on room air. c/o general body weakness. c/o nonproductive cough. c/o fever and chills. 07/05 Patient states that about 3 to 4 days prior to mission she started feeling ill with fever chills some shortness of breath but no cough. She has since developed productive cough of sputum which sometimes is yellow per her. She is a bit more short of breath. Chest x-ray now does show bilateral infiltrates. Started on remdesivir and dexamethasone. 07/06 Patient states she is feeling a little bit better today. Feels her shortness of breath is slowly improving. Has minimal cough. Does have heartburn but no ot her complaints. She is on 40 L/min 40% FiO2 07/07 Patient thinks she feels a little better today although FiO2 had to be increased to 50% from 35 yesterday afternoon. Minimal cough. No other pains or complaints. Inflammatory markers improving. 07/08 Patient says she feels tired and weak. Has occasional cough. She is requiring less oxygen and is now down to 8 L high flow. Chest x-ray yesterday showed much improvement. 07/09 Patient's says she feels about the same as yesterday but overall better. She is on 3 L nasal cannula. Has very minimal cough. Denies shortness of breath at rest. Review of Systems: denies headache/fever/chills/nausea/vomiting/chest or abdominal pain/diarrhea. Otherwise see above. Constitutional Vitals: Vital Signs Temp Pulse Resp BP Pulse Ox 97.8 F 47 L 18 132/71 96 07/09/21 02:00 07/09/21 06:01 07/09/21 06:01 07/09/21 06:01 07/09/21 06:01 Period Temp Pulse Resp BP Sys/Saucedo Pulse Ox Last 24 Hr 97 F-97.8 F 47-66 14-23 96-136/56-76 91-100 Intake and Output 07/08/21 07/09/21 07/09/21 21:59 05:59 13:59 Intake Total 880 Output Total 250 Balance 880 -250 Weight 81.919 kg Intake & Output: Intake & Output 07/08/21 07/09/21 07/09/21 21:59 05:59 13:59 Intake Total 880 Output Total 250 Balance 880 -250 Weight 81.919 kg Intake: Nourishment/Supplement quantity 480 (ml) Oral 400 Output: Void Amount 250 Other: Meal Dinner Percent of Meal Consumed 100% Nourishment/Supplement name ensure clear Urine Appearance Clear Urine Color Bright Yellow Urine Odor Normal Stool Size Large Stool Color Brown Stool Consistency Formed # Voids 1 Exam: General: Alert, Awake, No acute Distress Eyes/N/T: EOMI, Head/Neck: neck supple, CV: RRR, No murmurs, Pulm: minimal rhonchi b/l, no wheezing Abd: soft, nontender, +BS x4 Ext: no clubbing/cyanosis, trace b/l LE edema Neuro: Alert, no focal deficits, moves all extremities, Skin: warm/dry OBJ DATA Labs CBC & Chem 7: 07/06/21 05:01 07/08/21 08:27 Labs: Abnormal Lab Results 07/08/21 07/08/21 07/08/21 08:27 05:44 05:43 MPV Band Neutrophils % Lymphocytes % Reactive Lymphocytes D-Dimer BUN 24 H Glucose 131 H Ferritin GGT 50 H AST Lactate Dehydrogenase 394 H C-Reactive Protein 3.10 H Albumin Procalcitonin 0.11 H 07/07/21 07/07/21 07/07/21 05:00 05:00 05:00 MPV Band Neutrophils % Lymphocytes % Reactive Lymphocytes D-Dimer BUN Glucose 125 H Ferritin 537.5 H GGT 49 H AST 52 H Lactate Dehydrogenase 476 H C-Reactive Protein 5.90 H Albumin Procalcitonin 0.28 H 07/07/21 07/06/21 07/06/21 05:00 08:20 05:01 MPV 11.5 H Band Neutrophils % 13 H Lymphocytes % 12 L Reactive Lymphocytes 3 H D-Dimer 0.96 H BUN Glucose 160 H Ferritin GGT 46 H AST 61 H Lactate Dehydrogenase 491 H C-Reactive Protein Albumin 3.0 L Procalcitonin 07/06/21 07/06/21 05:00 05:00 MPV Band Neutrophils % Lymphocytes % Reactive Lymphocytes D-Dimer BUN Glucose Ferritin GGT AST Lactate Dehydrogenase C-Reactive Protein 11.40 H Albumin Procalcitonin 0.49 H Meds: Medications Acetaminophen (Acetaminophen 325 Mg Tablet) 650 mg PO Q6HP PRN; Protocol PRN Reason: Per Pain Protocol/Fever > 101 Last Admin: 07/08/21 16:27 Dose: 650 mg Documented by: Al Hydrox/Mg Hydrox/Simethicone (Mag Hydrox/Al Hydrox/Simeth 30 Ml Oral.Susp) 30 ml PO Q4-6HP PRN PRN Reason: Dyspepsia Last Admin: 07/08/21 02:06 Dose: 30 ml Documented by: Albuterol/Ipratropium (Ipratropium/Albuterol 3 Ml Ampul.Neb) 3 ml NEB Q4HRT PRN PRN Reason: Wheezing Dexamethasone (Dexamethasone 4 Mg Tablet) 6 mg PO DAILY [facility] Last Admin: 07/08/21 08:50 Dose: 6 mg Documented by: Docusate Sodium (Docusate Sodium 100 Mg Capsule) 100 mg PO BID [facility] Last Admin: 07/08/21 20:48 Dose: 100 mg Documented by: Enoxaparin Sodium (Enoxaparin 40 Mg/0.4 Ml Syringe) 40 mg SQ BID [facility] Last Admin: 07/08/21 20:49 Dose: 40 mg Documented by: Ceftriaxone Sodium 2 gm/ (Dextrose) 50 mls @ 100 mls/hr IV DAILY@1000 [facility]LEX[facility]DRA; Protocol Last Infusion: 07/08/21 09:25 Dose: Infused Documented by: REMDESIVIR 100 mg/ Sodium (Chloride) 250 mls @ 500 mls/hr IV DAILY [facility] Stop: 07/09/21 09:29 Last Infusion: 07/08/21 12:55 Dose: Infused Documented by: Ibuprofen (Ibuprofen 600 Mg Tablet) 600 mg PO QIDP PRN; Protocol PRN Reason: Per Pain Protocol/Fever > 101 Magnesium Hydroxide (Magnesium Hydroxide 30 Ml Oral.Susp) 30 ml PO DAILYP PRN PRN Reason: Constipation Last Admin: 07/08/21 08:50 Dose: 30 ml Documented by: Nicotine (Nicotine 21 Mg Patch) 21 mg TOPICAL DAILY@1000 [facility] Last Admin: 07/08/21 08:51 Dose: 21 mg Documented by: Ondansetron HCl (Ondansetron 4 Mg/2 Ml Vial) 4 mg IV Q6HP PRN PRN Reason: Nausea And Vomiting Last Admin: 07/07/21 08:42 Dose: 4 mg Documented by: Polyethylene Glycol (Polyethylene Glycol 3350 17 Gm Packet) 17 gm PO DAILYP PRN PRN Reason: Constipation Last Admin: 07/08/21 16:27 Dose: 17 gm Documented by: Potassium Chloride (Potassium Chloride 20 Meq Tablet) 20 meq PO BIDCC [facility] Last Admin: 07/09/21 07:48 Dose: 20 meq Documented by: Senna (Sennosides 1 Tablet) 2 tab PO HS [facility] Last Admin: 07/08/21 20:48 Dose: 2 tab Documented by: Sodium Biphosphate/Sodium Phosphate (Fleets Adult Enema) 1 dose [place] DAILYP PRN PRN Reason: Constipation Last Admin: 07/08/21 17:16 Dose: 1 dose Documented by: Sodium Chloride (0.9 % Sodium Chloride 10 Ml Syringe) 10 ml IV Q8 [facility] Last Admin: 07/09/21 07:37 Dose: 10 ml Documented by: Trazodone HCl (Trazodone Hcl 50 Mg Tablet) 25 mg PO HSP PRN PRN Reason: Insomnia A/P Narrative A/P Narrative: A: *CoVID pneumonia w/ARDS, suspected bacterial coinfection: -afebrile -inflammatory markers improving *Acute hypoxic respiratory failure: -down to 3L NC *Hypokalemia: RESOLVED *Tobacco abuse: Nicotine replacement therapy *Generalized weakness/deconditioning: P: -Remdesivir(finished)/dexamethasone, -empric abx, pct improved -Supplemental O2, wean as able -IS/Acapella, prn nebs -Proning/mobilization/oob to chair -pt/ot -ppx: Lovenox bid 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
[2021-07-09] MEDS: ENOXAPARIN 40 MG/0.4 ML SYRINGE SQ SCH ×2 (09:27→21:26)
[2021-07-09] MEDS: DOCUSATE SODIUM 100 MG CAPSULE PO SCH ×2 (09:27→21:26)
[2021-07-09] MEDS: DEXAMETHASONE 4 MG TABLET PO SCH (09:27)
[2021-07-09] MEDS: cefTRIAXone 2 GM in DEXTROSE 5% IN WATER 50 ML IV SCH (09:27)
[2021-07-09] MEDS: NICOTINE 21 MG PATCH TOPICAL SCH (09:28)
[2021-07-09 09:59] LABS: ALT/SGPT 27 U/L (<40); AST/SGOT 28 U/L (<32); Albumin 2.9 gm/dL (3.2-5.2); Alkaline Phosphatase 76 U/L (39-117); Bilirubin,Direct < 0.2 mg/dL (0-0.3); Bilirubin,Total 0.3 mg/dL (0.1-1.0); Blood Urea Nitrogen 19 mg/dL (8-23); Calcium 8.4 mg/dL (8.6-10.4); Carbon Dioxide 24 mmol/L (22-30); Chloride 104 mmol/L (96-108); Globulin 2.9 gm/dL (2.2-3.7); Glomerular Filtration Rate 78; Glucose 88 mg/dL (70-105); Lactate Dehydrogenase 416 U/L (135-225); Phosphorous 2.9 mg/dL (2.5-4.5); Triglycerides 168 mg/dL (<150); Uric Acid 4.3 mg/dL (2.5-8.0)
[2021-07-09] MEDS: REMDESIVIR 100 MG in 0.9 % SODIUM CHLORIDE 250 ML IV SCH (11:08)
[2021-07-09] MEDS: MAG HYDROX/AL HYDROX/SIMETH 30 ML ORAL.SUSP PO PRN (19:49)
[2021-07-09] MEDS: SENNOSIDES 1 TABLET PO SCH (21:26)
[2021-07-10] MEDS: 0.9 % SODIUM CHLORIDE 10 ML SYRINGE IV SCH ×3 (04:58→20:41)
[2021-07-10] MEDS: POTASSIUM CHLORIDE 20 MEQ TABLET PO SCH ×2 (07:28→17:04)
[2021-07-10] MEDS: ENOXAPARIN 40 MG/0.4 ML SYRINGE SQ SCH ×2 (08:12→20:41)
[2021-07-10] MEDS: DOCUSATE SODIUM 100 MG CAPSULE PO SCH ×2 (08:12→20:41)
[2021-07-10] MEDS: DEXAMETHASONE 4 MG TABLET PO SCH (08:12)
[2021-07-10] MEDS: FUROSEMIDE 20 MG/2 ML VIAL IV SCH (09:29)
[2021-07-10] MEDS: cefTRIAXone 2 GM in DEXTROSE 5% IN WATER 50 ML IV SCH (09:29)
[2021-07-10] MEDS: NICOTINE 21 MG PATCH TOPICAL SCH (09:29)
[2021-07-10] MEDS ORDERED: MAGNESIUM SULFATE 2 GM/50 ML BAG IV PRN (10:25)
[2021-07-10] MEDS ORDERED: NEUTRA PHOS 1 PACKET PO PRN (10:25)
[2021-07-10] MEDS ORDERED: POTASSIUM CHLORIDE 40 MEQ in DEXTROSE 5% IN WATER 500 ML IV PRN (10:25)
--- NOTE | 2021-07-10 10:25 | Internal Med Progress Note ---
SUBJECTIVE Subjective Patient information: Note initiated : 07/10/21 at 10:18 am Service Date, if different from initiated Date: [] Patient: Chayo Bermudez a 65 y/o F admitted on 07/05/21 for passsed out. Chief Complaint: [] Interval history: Ms. Bermuedz is a 65 year old F no past medical history, presenting with 1 week history of general body weakness, shortness of breath, respiratory wheezings, subjective fever and chills. Patient is not vaccinated against Covid pneumonia. No prior similar history. Over the past week, she experienced ge neral body weakness, shortness of breath, respiratory wheezing, subjective fever and chills. Denies any cough or sputum productions. Denies any chest pain or palpitations. She also have generalized muscle and joint aches as well as decreased appetite. It was also reported that she had an episode of syncope earlier yesterday which prompted her son to bring her to our ER for further evaluations. Vital signs within normal limits upon ER presentations. She was tested positive for Covid pneumonia in the ER. Labs were largely within normal limits with absence of leukocytosis with WBC 4.0. Chest x-ray showing mild left basilar infiltrate otherwise negative examinations. CT of the head without contrast did not show any acute intracranial pathologies. 07/04: Fever with Tmax 39.6 overnight. Was on 2L/min oxygen last night while sleeping, currently on room air. c/o general body weakness. c/o nonproductive cough. c/o fever and chills. 07/05 Patient states that about 3 to 4 days prior to mission she started feeling ill with fever chills some shortness of breath but no cough. She has since developed productive cough of sputum which sometimes is yellow per her. She is a bit more short of breath. Chest x-ray now does show bilateral infiltrates. Started on remdesivir and dexamethasone. 07/06 Patient states she is feeling a little bit better today. Feels her shortness of breath is slowly improving. Has minimal cough. Does have heartburn but no other complaints. She is on 40 L/min 40% FiO2 07/07 Patient thinks she feels a little better today although FiO2 had to be increased to 50% from 35 yesterday afternoon. Minimal cough. No other pains or complaints. Inflammatory markers improving. 07/08 Patient says she feels tired and weak. Has occasional cough. She is requiring less oxygen and is now down to 8 L high flow. Chest x-ray yesterday showed much improvement. 07/09 Patient's says she feels about the same as yesterday but overall better. She is on 3 L nasal cannula. Has very minimal cough. Denies shortness of breath at rest. 07/10-patient remains critically ill, intermittently confused, requiring 8 L high flow oxygen. Gotten worse since previous day. Repeat interval chest imaging today. On dexamethasone, twice daily enoxaparin. DC Rocephin. Continue Coumadin precautions. Repeat ABG Constitutional Vitals: Vital Signs Temp Pulse Resp BP Pulse Ox 97.9 F 71 19 96/53 96 07/10/21 08:02 07/10/21 10:00 07/10/21 10:00 07/10/21 10:00 07/10/21 10:00 Period Temp Pulse Resp BP Sys/Saucedo Pulse Ox Last 24 Hr 97 F-97.9 F 48-71 14- 96-147/50-87 90-99 Intake and Output 07/09/21 07/10/21 07/10/21 21:59 05:59 13:59 Intake Total 300 1000 Output Total 1500 Balance 300 -500 Weight 81.193 kg alert but intermittently confused On 6 to 8 L oxygen No other telemetry events Nondistended abdomen Intake & Output: Intake & Output 07/09/21 07/10/21 07/10/21 21:59 05:59 13:59 Intake Total 300 1000 Output Total 1500 Balance 300 -500 Weight 81.193 kg Intake: Nourishment/Supplement quantity 240 (ml) Oral 300 760 Output: Void Amount 1500 Other: Meal Lunch Percent of Meal Consumed 75% 100% Feeding Ability Assist with Tray Set Up Nourishment/Supplement name ensure clear Urine Appearance Clear Urine Color Bright Yellow Urine Odor Normal OBJ DATA Labs CBC & Chem 7: 07/06/21 05:01 07/09/21 09:04 Labs: Abnormal Lab Results 07/09/21 07/08/21 07/08/21 09:04 08:27 05:44 BUN 24 H Glucose 131 H Calcium 8.4 L Magnesium 2.7 H GGT 54 H 50 H Lactate Dehydrogenase 416 H 394 H C-Reactive Protein Total Protein 5.8 L Albumin 2.9 L Triglycerides 168 H Procalcitonin 0.11 H 07/08/21 05:43 BUN Glucose Calcium Magnesium GGT Lactate Dehydrogenase C-Reactive Protein 3.10 H Total Protein Albumin Triglycerides Procalcitonin Meds: Medications Acetaminophen (Acetaminophen 325 Mg Tablet) 650 mg PO Q6HP PRN; Protocol PRN Reason: Per Pain Protocol/Fever > 101 Last Admin: 07/08/21 16:27 Dose: 650 mg Documented by: Al Hydrox/Mg Hydrox/Simethicone (Mag Hydrox/Al Hydrox/Simeth 30 Ml Oral.Susp) 30 ml PO Q4-6HP PRN PRN Reason: Dyspepsia Last Admin: 07/09/21 19:49 Dose: 30 ml Documented by: Albuterol/Ipratropium (Ipratropium/Albuterol 3 Ml Ampul.Neb) 3 ml NEB Q4HRT PRN PRN Reason: Wheezing Dexamethasone (Dexamethasone 4 Mg Tablet) 6 mg PO DAILY [facility] Last Admin: 07/10/21 08:12 Dose: 6 mg Documented by: Docusate Sodium (Docusate Sodium 100 Mg Capsule) 100 mg PO BID [facility] Last Admin: 07/10/21 08:12 Dose: 100 mg Documented by: Enoxaparin Sodium (Enoxaparin 40 Mg/0.4 Ml Syringe) 40 mg SQ BID [facility] Last Admin: 07/10/21 08:12 Dose: 40 mg Documented by: Furosemide (Furosemide 20 Mg/2 Ml Vial) 20 mg IV DAILY [facility] Last Admin: 07/10/21 09:29 Dose: 20 mg Documented by: Ceftriaxone Sodium 2 gm/ (Dextrose) 50 mls @ 100 mls/hr IV DAILY@1000 [facility]LEX[facility]DR[facility]; Protocol Last Admin: 07/10/21 09:29 Dose: 100 mls/hr Documented by: Ibuprofen (Ibuprofen 600 Mg Tablet) 600 mg PO QIDP PRN; Protocol PRN Reason: Per Pain Protocol/Fever > 101 Magnesium Hydroxide (Magnesium Hydroxide 30 Ml Oral.Susp) 30 ml PO DAILYP PRN PRN Reason: Constipation Last Admin: 07/08/21 08:50 Dose: 30 ml Documented by: Nicotine (Nicotine 21 Mg Patch) 21 mg TOPICAL DAILY@1000 [facility] Last Admin: 07/10/21 09:29 Dose: 21 mg Documented by: Ondansetron HCl (Ondansetron 4 Mg/2 Ml Vial) 4 mg IV Q6HP PRN PRN Reason: Nausea And Vomiting Last Admin: 07/07/21 08:42 Dose: 4 mg Documented by: Polyethylene Glycol (Polyethylene Glycol 3350 17 Gm Packet) 17 gm PO DAILYP PRN PRN Reason: Constipation Last Admin: 07/08/21 16:27 Dose: 17 gm Documented by: Potassium Chloride (Potassium Chloride 20 Meq Tablet) 20 meq PO BIDCC [facility] Last Admin: 07/10/21 07:28 Dose: 20 meq Documented by: Senna (Sennosides 1 Tablet) 2 tab PO HS [facility] Last Admin: 07/09/21 21:26 Dose: 2 tab Documented by: Sodium Biphosphate/Sodium Phosphate (Fleets Adult Enema) 1 dose [place] DAILYP PRN PRN Reason: Constipation Last Admin: 07/08/21 17:16 Dose: 1 dose Documented by: Sodium Chloride (0.9 % Sodium Chloride 10 Ml Syringe) 10 ml IV Q8 [facility] Last Admin: 07/10/21 04:58 Dose: 10 ml Documented by: Trazodone HCl (Trazodone Hcl 50 Mg Tablet) 25 mg PO HSP PRN PRN Reason: Insomnia A/P Narrative A/P Narrative: * COVID-19 pneumonia with ARDS. Continue dexamethasone. Clinical duration noted. Interval chest imaging. Repeat ABG. Low procalcitonin * ARDS with hypoxia spray failure continue high flow oxygen and wean as tolerated. Start gentle diuresis * Tobacco dependence nicotine patch * Generalized deconditioning continue PT * DVT prophylaxis twice daily Lovenox Plan * Continue dexamethasone, DC antibiotics in 24 h * ABG/chest imaging/CBC * Gentle diuresis * Proning as tolerated * Continue critical care treatment in the setting of worsening hypoxic respiratory failure/ARDS and high risk mortality Time Spent With Patient Time: Total time spent is greater than 50% in coordination of care (as documented) at patient's floor/unit and/or counseling patient: QUALITY VTE Deep Vein Thrombosis/Pulmonary Embolism Present on Admission: No
--- NOTE | 2021-07-10 12:50 | XRay Report ---
CLINICAL INFORMATION: Dyspnea COMPARISON: 07/07/2021 TECHNIQUE: PA and Lateral views FINDINGS: The heart size and pulmonary vasculature are unremarkable. Small hiatal hernia noted. The mediastinum is otherwise normal. Moderate patchy infiltrates have developed throughout both lungs-most prominent in the upper lungs. No effusions. The bones and soft tissues are within normal limits. IMPRESSION: Moderate patchy infiltrates throughout both lungs most prominent in the upper lungs. Consider infection or aspiration. Small hiatal hernia. Interpreted and Authenticated by: Herrera Brandon 07/10/21
[2021-07-10] MEDS: MAG HYDROX/AL HYDROX/SIMETH 30 ML ORAL.SUSP PO PRN (13:28)
[2021-07-10] MEDS: SENNOSIDES 1 TABLET PO SCH (20:41)
[2021-07-11] MEDS: 0.9 % SODIUM CHLORIDE 10 ML SYRINGE IV SCH ×3 (06:48→21:38)
[2021-07-11 07:09] LABS: Basophils # (Auto) 0.07 K/mcL (0.00-0.30); Basophils % (Auto) 0.7 % (0.0-2.0); Eosinophils # (Auto) 0.08 K/mcL (0.00-0.70); Eosinophils % (Auto) 0.8 % (0.0-7.0); Hematocrit 42.8 % (34.1-44.9); Hemoglobin 13.7 g/dL (11.2-15.7); Lymphocytes # (Auto) 2.57 K/mcL (1.50-4.80); Lymphocytes % (Auto) 25.8 % (15.5-49.0); Mean Cell Volume 86.8 fL (80.0-100.0); Mean Platelet Volume 9.4 fL (7.4-10.4); Monocytes # (Auto) 0.51 K/mcL (0.10-0.90); Monocytes % (Auto) 5.1 % (1.0-12.0); Neutrophils % (Auto) 67.6 % (38.0-78.0); Platelet Count 461 K/mcL (140-440); RBC 4.93 M/mcL (3.59-5.38); Red Cell Distribution Width 13.2 % (11.5-14.5)
[2021-07-11] MEDS: POTASSIUM CHLORIDE 20 MEQ TABLET PO SCH ×2 (08:03→17:26)
[2021-07-11] MEDS: FUROSEMIDE 20 MG/2 ML VIAL IV SCH ×2 (08:21→10:03)
[2021-07-11] MEDS: DOCUSATE SODIUM 100 MG CAPSULE PO SCH ×2 (08:48→21:37)
[2021-07-11] MEDS: DEXAMETHASONE 4 MG TABLET PO SCH (08:48)
[2021-07-11] MEDS: ENOXAPARIN 40 MG/0.4 ML SYRINGE SQ SCH ×2 (08:49→21:37)
[2021-07-11] MEDS: MAGNESIUM HYDROXIDE 30 ML ORAL.SUSP PO PRN (08:49)
[2021-07-11] MEDS: cefTRIAXone 2 GM in DEXTROSE 5% IN WATER 50 ML IV SCH (09:40)
[2021-07-11] MEDS: NICOTINE 21 MG PATCH TOPICAL SCH (09:40)
--- NOTE | 2021-07-11 12:01 | Internal Med Progress Note ---
SUBJECTIVE Subjective Patient information: Note initiated : 07/11/21 at 11:57 am Service Date, if different from initiated Date: [] Patient: Chayo Bermudez a 65 y/o F admitted on 07/05/21 for passsed out. Chief Complaint: [] Interval history: Ms. Bermudez is a 65 year old F no past medical history, presenting with 1 week history of general body weakness, shortness of breath, respiratory wheezings, subjective fever and chills. Patient is not vaccinated against Covid pneumonia. No prior similar history. Over the past week, she experienced ge neral body weakness, shortness of breath, respiratory wheezing, subjective fever and chills. Denies any cough or sputum productions. Denies any chest pain or palpitations. She also have generalized muscle and joint aches as well as decreased appetite. It was also reported that she had an episode of syncope earlier yesterday which prompted her son to bring her to our ER for further evaluations. Vital signs within normal limits upon ER presentations. She was tested positive for Covid pneumonia in the ER. Labs were largely within normal limits with absence of leukocytosis with WBC 4.0. Chest x-ray showing mild left basilar infiltrate otherwise negative examinations. CT of the head without contrast did not show any acute intracranial pathologies. 07/04: Fever with Tmax 39.6 overnight. Was on 2L/min oxygen last night while sleeping, currently on room air. c/o general body weakness. c/o nonproductive cough. c/o fever and chills. 07/05 Patient states that about 3 to 4 days prior to mission she started feeling ill with fever chills some shortness of breath but no cough. She has since developed productive cough of sputum which sometimes is yellow per her. She is a bit more short of breath. Chest x-ray now does show bilateral infiltrates. Started on remdesivir and dexamethasone. 07/06 Patient states she is feeling a little bit better today. Feels her shortness of breath is slowly improving. Has minimal cough. Does have heartburn but no other complaints. She is on 40 L/min 40% FiO2 07/07 Patient thinks she feels a little better today although FiO2 had to be increased to 50% from 35 yesterday afternoon. Minimal cough. No other pains or complaints. Inflammatory markers improving. 07/08 Patient says she feels tired and weak. Has occasional cough. She is requiring less oxygen and is now down to 8 L high flow. Chest x-ray yesterday showed much improvement. 07/09 Patient's says she feels about the same as yesterday but overall better. She is on 3 L nasal cannula. Has very minimal cough. Denies shortness of breath at rest. 07/10-patient remains critically ill, intermittently confused, requiring 8 L high flow oxygen. Gotten worse since previous day. Repeat interval chest imaging today. On dexamethasone, twice daily enoxaparin. DC Rocephin. Continue Coumadin precautions. Repeat ABG 07/11-continue dexamethasone, restarted in July, status post Actemra. Currently on 50% FiO2 40 L high flow remains critically ill. Interval chest imaging bilateral patchy infiltrates. DC antibiotic coverage. Gentle diuresis.No overnight fever chills or concerns per nursing staff Constitutional Vitals: Vital Signs Temp Pulse Resp BP Pulse Ox 97.2 F 74 16 100/62 93 07/11/21 08:00 07/11/21 10:01 07/11/21 10:01 07/11/21 10:01 07/11/21 10:01 Period Temp Pulse Resp BP Sys/Saucedo Pulse Ox Last 24 Hr 97 F-97.6 F 57-77 07-10 81-108/58-78 91-98 Intake and Output 07/10/21 07/11/21 07/11/21 21:59 05:59 13:59 Intake Total 240 400 Output Total 475 425 Balance -235 -25 Weight 80.195 kg Very fatigued lethargic on high flow oxygen Labored breathing No telemetry events No lymphedema Intake & Output: Intake & Output 07/10/21 07/11/21 07/11/21 21:59 05:59 13:59 Intake Total 240 400 Output Total 475 425 Balance -235 -25 Weight 80.195 kg Intake: Oral 240 400 Output: Void Amount 475 425 Other: Urine Appearance Clear Clear Urine Color Dark Yellow Bright Yellow Urine Odor Normal Normal OBJ DATA Labs CBC & Chem 7: 07/11/21 05:51 07/09/21 09:04 Labs: Abnormal Lab Results 07/11/21 07/09/21 05:51 09:04 Plt Count 461 H Calcium 8.4 L Magnesium 2.7 H GGT 54 H Lactate Dehydrogenase 416 H Total Protein 5.8 L Albumin 2.9 L Triglycerides 168 H Meds: Medications Acetaminophen (Acetaminophen 325 Mg Tablet) 650 mg PO Q6HP PRN; Protocol PRN Reason: Per Pain Protocol/Fever > 101 Last Admin: 07/08/21 16:27 Dose: 650 mg Documented by: Al Hydrox/Mg Hydrox/Simethicone (Mag Hydrox/Al Hydrox/Simeth 30 Ml Oral.Susp) 30 ml PO Q4-6HP PRN PRN Reason: Dyspepsia Last Admin: 07/10/21 13:28 Dose: 30 ml Documented by: Albuterol/Ipratropium (Ipratropium/Albuterol 3 Ml Ampul.Neb) 3 ml NEB Q4HRT PRN PRN Reason: Wheezing Dexamethasone (Dexamethasone 4 Mg Tablet) 6 mg PO DAILY [facility] Last Admin: 07/11/21 08:48 Dose: 6 mg Documented by: Docusate Sodium (Docusate Sodium 100 Mg Capsule) 100 mg PO BID [facility] Last Admin: 07/11/21 08:48 Dose: 100 mg Documented by: Enoxaparin Sodium (Enoxaparin 40 Mg/0.4 Ml Syringe) 40 mg SQ BID [facility] Last Admin: 07/11/21 08:49 Dose: 40 mg Documented by: Furosemide (Furosemide 20 Mg/2 Ml Vial) 20 mg IV DAILY [facility] Last Admin: 07/11/21 10:03 Dose: Not Given Documented by: Furosemide (Furosemide 20 Mg/2 Ml Vial) 20 mg IV DAILY [facility] Last Admin: 07/11/21 08:21 Dose: Not Given Documented by: Potassium Chloride 40 meq/ (Dextrose) 520 mls @ 130 mls/hr IV UD PRN PRN Reason: K+ = or < 3.5 Magnesium Sulfate (Magnesium Sulfate) 2 gm in 50 mls @ 50 mls/hr IV UD PRN PRN Reason: Mag < or = 1.7 Ibuprofen (Ibuprofen 600 Mg Tablet) 600 mg PO QIDP PRN; Protocol PRN Reason: Per Pain Protocol/Fever > 101 Magnesium Hydroxide (Magnesium Hydroxide 30 Ml Oral.Susp) 30 ml PO DAILYP PRN PRN Reason: Constipation Last Admin: 07/11/21 08:49 Dose: 30 ml Documented by: Nicotine (Nicotine 21 Mg Patch) 21 mg TOPICAL DAILY@1000 [facility] Last Admin: 07/11/21 09:40 Dose: 21 mg Documented by: Ondansetron HCl (Ondansetron 4 Mg/2 Ml Vial) 4 mg IV Q6HP PRN PRN Reason: Nausea And Vomiting Last Admin: 07/07/21 08:42 Dose: 4 mg Documented by: Polyethylene Glycol (Polyethylene Glycol 3350 17 Gm Packet) 17 gm PO DAILYP PRN PRN Reason: Constipation Last Admin: 07/08/21 16:27 Dose: 17 gm Documented by: Potassium Chloride (Potassium Chloride 20 Meq Tablet) 20 meq PO BIDCC [facility] Last Admin: 07/11/21 08:03 Dose: 20 meq Documented by: Potassium/Phosphorus/Sodium (Neutra Phos 1 Packet) 2 packet PO ONCE PRN PRN Reason: For phosphorus less than 2.5 Senna (Sennosides 1 Tablet) 2 tab PO HS [facility] Last Admin: 07/10/21 20:41 Dose: 2 tab Documented by: Sodium Biphosphate/Sodium Phosphate (Fleets Adult Enema) 1 dose [place] DAILYP PRN PRN Reason: Constipation Last Admin: 07/08/21 17:16 Dose: 1 dose Documented by: Sodium Chloride (0.9 % Sodium Chloride 10 Ml Syringe) 10 ml IV Q8 [facility] Last Admin: 07/11/21 06:48 Dose: 10 ml Documented by: Trazodone HCl (Trazodone Hcl 50 Mg Tablet) 25 mg PO HSP PRN PRN Reason: Insomnia A/P Narrative A/P Narrative: * COVID-19 pneumonia with ARDS. Continue dexamethasone/remdesivir. Status post Actemra. Clinical deterioration noted now requiring high flow 50% FiO2. ABG 7.5/35/52 on 7 L oxygen * ARDS with hypoxic respiratory failure continue-high flow oxygen/gentle diuresis/transition to noninvasive ventilation if indicated * Tobacco dependence nicotine patch * Generalized deconditioning continue PT * DVT prophylaxis twice daily Lovenox Plan * Continue dexamethasone/remdesivir * DC antibiotic * ABG/chest imaging/CBC * Gentle diuresis * Proning as tolerated * Continue critical care treatment in the setting of worsening hypoxic respiratory failure/ARDS and high risk mortality Time Spent With Patient Time: Total time spent is greater than 50% in coordination of care (as documented) at patient's floor/unit and/or counseling patient: QUALITY VTE Deep Vein Thrombosis/Pulmonary Embolism Present on Admission: No
[2021-07-11] MEDS: MAG HYDROX/AL HYDROX/SIMETH 30 ML ORAL.SUSP PO PRN (13:30)
[2021-07-11] MEDS: REMDESIVIR 100 MG in 0.9 % SODIUM CHLORIDE 250 ML IV SCH (14:02)
[2021-07-11] MEDS: ACETAMINOPHEN 325 MG TABLET PO PRN (21:37)
[2021-07-11] MEDS: SENNOSIDES 1 TABLET PO SCH (21:37)
[2021-07-12] MEDS: 0.9 % SODIUM CHLORIDE 10 ML SYRINGE IV SCH ×3 (05:46→21:04)
--- NOTE | 2021-07-12 06:35 | XRay Report ---
CLINICAL INFORMATION: Follow up infiltrate COMPARISON: 07/10/2021 TECHNIQUE: PA and Lateral views FINDINGS: Heart is normal in size. Small hiatal hernia again noted. The main the mediastinum and pulmonary vessels are normal. Moderate patchy upper and midlung infiltrates showed modest improvement in aeration with no effusion. The bones and soft tissues are within normal limits. IMPRESSION: Moderate patchy infiltrates in both upper and mid lungs show improved aeration from yesterday. Small hiatal hernia. Interpreted and Authenticated by: Herrera Brandon 07/12/21
[2021-07-12] MEDS: POTASSIUM CHLORIDE 20 MEQ TABLET PO SCH ×2 (08:06→16:55)
[2021-07-12] MEDS: DOCUSATE SODIUM 100 MG CAPSULE PO SCH ×2 (08:06→21:04)
[2021-07-12] MEDS: DEXAMETHASONE 4 MG TABLET PO SCH (08:06)
[2021-07-12] MEDS: ENOXAPARIN 40 MG/0.4 ML SYRINGE SQ SCH ×2 (08:07→21:04)
[2021-07-12 08:36] LABS: Basophils # (Auto) 0.07 K/mcL (0.00-0.30); Basophils % (Auto) 0.6 % (0.0-2.0); Eosinophils # (Auto) 0.09 K/mcL (0.00-0.70); Eosinophils % (Auto) 0.8 % (0.0-7.0); Lymphocytes # (Auto) 1.97 K/mcL (1.50-4.80); Lymphocytes % (Auto) 16.5 % (15.5-49.0); Mean Cell Volume 87.3 fL (80.0-100.0); Mean Corpuscular HGB Conc 31.8 g/dL (31.0-36.0); Mean Platelet Volume 9.4 fL (7.4-10.4); Monocytes # (Auto) 0.54 K/mcL (0.10-0.90); Monocytes % (Auto) 4.5 % (1.0-12.0); Neutrophils % (Auto) 77.6 % (38.0-78.0); Platelet Count 462 K/mcL (140-440); RBC 5.04 M/mcL (3.59-5.38); Red Cell Distribution Width 13.3 % (11.5-14.5); WBC 11.9 K/mcL (4.5-11.0)
[2021-07-12 08:46] LABS: ALT/SGPT 30 U/L (<40); AST/SGOT 25 U/L (<32); Albumin 3.4 gm/dL (3.2-5.2); Albumin/Globulin Ratio 1.2 (1.0-2.3); Alkaline Phosphatase 77 U/L (39-117); Bilirubin,Direct < 0.2 mg/dL (0-0.3); Bilirubin,Total 0.3 mg/dL (0.1-1.0); Blood Urea Nitrogen 19 mg/dL (8-23); Calcium 8.9 mg/dL (8.6-10.4); Carbon Dioxide 22 mmol/L (22-30); Chloride 100 mmol/L (96-108); Globulin 2.8 gm/dL (2.2-3.7); Glomerular Filtration Rate 96; Glucose 128 mg/dL (70-105); Lactate Dehydrogenase 342 U/L (135-225); Phosphorous 3.7 mg/dL (2.5-4.5); Triglycerides 179 mg/dL (<150); Uric Acid 3.9 mg/dL (2.5-8.0)
[2021-07-12] MEDS: FUROSEMIDE 20 MG/2 ML VIAL IV SCH (10:09)
[2021-07-12] MEDS: NICOTINE 21 MG PATCH TOPICAL SCH (10:09)
[2021-07-12] MEDS: REMDESIVIR 100 MG in 0.9 % SODIUM CHLORIDE 250 ML IV SCH (12:49)
--- NOTE | 2021-07-12 13:19 | Internal Med Progress Note ---
SUBJECTIVE Subjective Patient information: Note initiated : 07/12/21 at 1:15 pm Service Date, if different from initiated Date: [] Patient: Chayo Bermudez a 65 y/o F admitted on 07/05/21 for passsed out. Chief Complaint: [] Interval history: Ms. Bermudez is a 65 year old F no past medical history, presenting with 1 week history of general body weakness, shortness of breath, respiratory wheezings, subjective fever and chills. Patient is not vaccinated against Covid pneumonia. No prior similar history. Over the past week, she experienced gen eral body weakness, shortness of breath, respiratory wheezing, subjective fever and chills. Denies any cough or sputum productions. Denies any chest pain or palpitations. She also have generalized muscle and joint aches as well as decreased appetite. It was also reported that she had an episode of syncope earlier yesterday which prompted her son to bring her to our ER for further evaluations. Vital signs within normal limits upon ER presentations. She was tested positive for Covid pneumonia in the ER. Labs were largely within normal limits with absence of leukocytosis with WBC 4.0. Chest x-ray showing mild left basilar infiltrate otherwise negative examinations. CT of the head without contrast did not show any acute intracranial pathologies. 07/04: Fever with Tmax 39.6 overnight. Was on 2L/min oxygen last night while sleeping, currently on room air. c/o general body weakness. c/o nonproductive cough. c/o fever and chills. 07/05 Patient states that about 3 to 4 days prior to mission she started feeling ill with fever chills some shortness of breath but no cough. She has since developed productive cough of sputum which sometimes is yellow per her. She is a bit more short of breath. Chest x-ray now does show bilateral infiltrates. Started on remdesivir and dexamethasone. 07/06 Patient states she is feeling a little bit better today. Feels her shortness of breath is slowly improving. Has minimal cough. Does have heartburn but no other complaints. She is on 40 L/min 40% FiO2 07/07 Patient thinks she feels a little better today although FiO2 had to be increased to 50% from 35 yesterday afternoon. Minimal cough. No other pains or complaints. Inflammatory markers improving. 07/08 Patient says she feels tired and weak. Has occasional cough. She is requiring less oxygen and is now down to 8 L high flow. Chest x-ray yesterday showed much improvement. 07/09 Patient's says she feels about the same as yesterday but overall better. She is on 3 L nasal cannula. Has very minimal cough. Denies shortness of breath at rest. 07/10-patient remains critically ill, intermittently confused, requiring 8 L high flow oxygen. Gotten worse since previous day. Repeat interval chest imaging today. On dexamethasone, twice daily enoxaparin. DC Rocephin. Continue Coumadin precautions. Repeat ABG 07/11-continue dexamethasone, restarted in July, status post Actemra. Currently on 50% FiO2 40 L high flow remains critically ill. Interval chest imaging bilateral patchy infiltrates. DC antibiotic coverage. Gentle diuresis.No overnight fever chills or concerns per nursing staff 07/12-patient continues to be critically ill. On 50% FiO2 high flow 50 L. In terval chest imaging slight improvement in bilateral multifocal infiltrates. Off antibiotic coverage. Continue dexamethasone/remdesivir. Patient feels very depressed. Responding well to diuretics. No telemetry events White count 11.9, stable renal function. On twice daily Lovenox. Prognosis guarded Constitutional Vitals: Vital Signs Temp Pulse Resp BP Pulse Ox 97.8 F 69 23 H 118/73 94 07/12/21 11:56 07/12/21 10:01 07/12/21 11:56 07/12/21 11:56 07/12/21 10:01 Period Temp Pulse Resp BP Sys/Saucedo Pulse Ox Last 24 Hr 97.2 F-97.8 F 50-81 12-25 95-118/58-92 94-100 Intake and Output 07/11/21 07/12/21 07/12/21 21:59 05:59 13:59 Intake Total 1570 850 Output Total 2350 550 1550 Balance -780 300 -1550 Weight 79.634 kg on high flow 50 L oxygen Anxious No lymphedema Alert and oriented Intake & Output: Intake & Output 07/11/21 07/12/21 07/12/21 21:59 05:59 13:59 Intake Total 1570 850 Output Total 2350 550 1550 Balance -780 300 -1550 Weight 79.634 kg Intake: IV 250 Veklury 100 mg In Sodium 250 Chloride 0.9% 250 ml @ 500 mls/ hr IV Q24H [facility] Rx#:[id number] Oral 1320 850 Output: Void Amount 2350 550 1550 Other: Meal Lunch Lunch Percent of Meal Consumed 100% 75% Feeding Ability Independent Nourishment/Supplement name ensure Urine Appearance Clear Clear Clear Urine Color Dark Yellow Dark Yellow Stool Size Large Smear Stool Color Brown Brown Stool Consistency Soft Soft Formed Formed # Bowel Movements 1 1 OBJ DATA Labs CBC & Chem 7: 07/12/21 05:19 07/12/21 05:19 Labs: Abnormal Lab Results 07/12/21 07/12/21 07/11/21 05:19 05:19 05:51 WBC 11.9 H Plt Count 462 H 461 H Absolute Neutrophils 9.27 H Glucose 128 H GGT 62 H Lactate Dehydrogenase 342 H Triglycerides 179 H Meds: Medications Acetaminophen (Acetaminophen 325 Mg Tablet) 650 mg PO Q6HP PRN; Protocol PRN Reason: Per Pain Protocol/Fever > 101 Last Admin: 07/11/21 21:37 Dose: 650 mg Documented by: Al Hydrox/Mg Hydrox/Simethicone (Mag Hydrox/Al Hydrox/Simeth 30 Ml Oral.Susp) 30 ml PO Q4-6HP PRN PRN Reason: Dyspepsia Last Admin: 07/11/21 13:30 Dose: 30 ml Documented by: Albuterol/Ipratropium (Ipratropium/Albuterol 3 Ml Ampul.Neb) 3 ml NEB Q4HRT PRN PRN Reason: Wheezing Last Admin: 07/11/21 13:50 Dose: 3 ml Documented by: Dexamethasone (Dexamethasone 4 Mg Tablet) 6 mg PO DAILY [facility] Last Admin: 07/12/21 08:06 Dose: 6 mg Documented by: Docusate Sodium (Docusate Sodium 100 Mg Capsule) 100 mg PO BID [facility] Last Admin: 07/12/21 08:06 Dose: 100 mg Documented by: Enoxaparin Sodium (Enoxaparin 40 Mg/0.4 Ml Syringe) 40 mg SQ BID [facility] Last Admin: 07/12/21 08:07 Dose: 40 mg Documented by: Furosemide (Furosemide 20 Mg/2 Ml Vial) 20 mg IV DAILY [facility] Last Admin: 07/12/21 10:09 Dose: 20 mg Documented by: Potassium Chloride 40 meq/ (Dextrose) 520 mls @ 130 mls/hr IV UD PRN PRN Reason: K+ = or < 3.5 Magnesium Sulfate (Magnesium Sulfate) 2 gm in 50 mls @ 50 mls/hr IV UD PRN PRN Reason: Mag < or = 1.7 REMDESIVIR 100 mg/ Sodium (Chloride) 250 mls @ 500 mls/hr IV Q24H [facility] Stop: 07/15/21 13:29 Last Admin: 07/12/21 12:49 Dose: 500 mls/hr Documented by: Ibuprofen (Ibuprofen 600 Mg Tablet) 600 mg PO QIDP PRN; Protocol PRN Reason: Per Pain Protocol/Fever > 101 Magnesium Hydroxide (Magnesium Hydroxide 30 Ml Oral.Susp) 30 ml PO DAILYP PRN PRN Reason: Constipation Last Admin: 07/11/21 08:49 Dose: 30 ml Documented by: Nicotine (Nicotine 21 Mg Patch) 21 mg TOPICAL DAILY@1000 [facility] Last Admin: 07/12/21 10:09 Dose: 21 mg Documented by: Ondansetron HCl (Ondansetron 4 Mg/2 Ml Vial) 4 mg IV Q6HP PRN PRN Reason: Nausea And Vomiting Last Admin: 07/07/21 08:42 Dose: 4 mg Documented by: Polyethylene Glycol (Polyethylene Glycol 3350 17 Gm Packet) 17 gm PO DAILYP PRN PRN Reason: Constipation Last Admin: 07/08/21 16:27 Dose: 17 gm Documented by: Potassium Chloride (Potassium Chloride 20 Meq Tablet) 20 meq PO BIDCC [facility] Last Admin: 07/12/21 08:06 Dose: 20 meq Documented by: Potassium/Phosphorus/Sodium (Neutra Phos 1 Packet) 2 packet PO ONCE PRN PRN Reason: For phosphorus less than 2.5 Senna (Sennosides 1 Tablet) 2 tab PO HS [facility] Last Admin: 07/11/21 21:37 Dose: 2 tab Documented by: Sodium Biphosphate/Sodium Phosphate (Fleets Adult Enema) 1 dose [place] DAILYP PRN PRN Reason: Constipation Last Admin: 07/08/21 17:16 Dose: 1 dose Documented by: Sodium Chloride (0.9 % Sodium Chloride 10 Ml Syringe) 10 ml IV Q8 [facility] Last Admin: 07/12/21 12:50 Dose: 10 ml Documented by: Trazodone HCl (Trazodone Hcl 50 Mg Tablet) 25 mg PO HSP PRN PRN Reason: Insomnia A/P Narrative A/P Narrative: * COVID-19 pneumonia with ARDS. Minimal improvement noted over the last 24 ho urs. Continue Dexamethasone/remdesivir. Status post Actemra. ABG 7.5//52 on 7 L oxygen * ARDS with hypoxic respiratory failure continue-on 50 l high flow oxygen. Responding to diuresis * Tobacco dependence nicotine patch * Generalized deconditioning continue PT * DVT prophylaxis twice daily Lovenox Plan * Continue dexamethasone/remdesivir day 7 * Continue diuresis * Proning as tolerated * Guarded prognosis, remains high risk mortality, family conference today Time Spent With Patient Time: Critical care time Total time spent with greater than 50% in coordination of care (as documented) at patient's floor/unit and/or counseling patient:: Greater than 35 minutes QUALITY VTE Deep Vein Thrombosis/Pulmonary Embolism Present on Admission: No
[2021-07-12] MEDS ORDERED: FUROSEMIDE 20 MG/2 ML VIAL IV ONE (15:00)
[2021-07-12] MEDS: SENNOSIDES 1 TABLET PO SCH (21:04)
[2021-07-13] MEDS: 0.9 % SODIUM CHLORIDE 10 ML SYRINGE IV SCH ×3 (06:08→20:01)
[2021-07-13] MEDS: POTASSIUM CHLORIDE 20 MEQ TABLET PO SCH (08:07)
[2021-07-13] MEDS: ENOXAPARIN 40 MG/0.4 ML SYRINGE SQ SCH ×2 (09:16→20:01)
[2021-07-13] MEDS: FUROSEMIDE 20 MG/2 ML VIAL IV SCH (09:17)
[2021-07-13] MEDS: DOCUSATE SODIUM 100 MG CAPSULE PO SCH ×2 (09:17→20:00)
[2021-07-13] MEDS: DEXAMETHASONE 4 MG TABLET PO SCH (09:17)
[2021-07-13] MEDS: NICOTINE 21 MG PATCH TOPICAL SCH (09:17)
[2021-07-13 09:18] LABS: ALT/SGPT 24 U/L (<40); AST/SGOT 19 U/L (<32); Albumin 3.4 gm/dL (3.2-5.2); Albumin/Globulin Ratio 1.2 (1.0-2.3); Alkaline Phosphatase 74 U/L (39-117); Basophils # (Auto) 0.06 K/mcL (0.00-0.30); Basophils % (Auto) 0.4 % (0.0-2.0); Bilirubin,Direct < 0.2 mg/dL (0-0.3); Bilirubin,Total 0.4 mg/dL (0.1-1.0); Blood Urea Nitrogen 24 mg/dL (8-23); Calcium 9.2 mg/dL (8.6-10.4); Carbon Dioxide 24 mmol/L (22-30); Chloride 98 mmol/L (96-108); Eosinophils # (Auto) 0.16 K/mcL (0.00-0.70); Eosinophils % (Auto) 1.1 % (0.0-7.0); Globulin 2.9 gm/dL (2.2-3.7); Glomerular Filtration Rate 92; Glucose 120 mg/dL (70-105); Hematocrit 43.2 % (34.1-44.9); Hemoglobin 13.8 g/dL (11.2-15.7); Lactate Dehydrogenase 396 U/L (135-225); Lymphocytes # (Auto) 2.33 K/mcL (1.50-4.80); Lymphocytes % (Auto) 16.4 % (15.5-49.0); Mean Cell Volume 87.8 fL (80.0-100.0); Mean Corpuscular HGB Conc 31.9 g/dL (31.0-36.0); Mean Platelet Volume 9.6 fL (7.4-10.4); Monocytes # (Auto) 0.68 K/mcL (0.10-0.90); Monocytes % (Auto) 4.8 % (1.0-12.0); Neutrophils % (Auto) 77.3 % (38.0-78.0); Phosphorous 3.9 mg/dL (2.5-4.5); Platelet Count 473 K/mcL (140-440); RBC 4.92 M/mcL (3.59-5.38); Red Cell Distribution Width 13.5 % (11.5-14.5); Triglycerides 195 mg/dL (<150); WBC 14.2 K/mcL (4.5-11.0)
[2021-07-13] MEDS: MAG HYDROX/AL HYDROX/SIMETH 30 ML ORAL.SUSP PO PRN (10:38)
--- NOTE | 2021-07-13 11:09 | Internal Med Progress Note ---
SUBJECTIVE Subjective Patient information: Note initiated : 07/13/21 at 11:05 am Service Date, if different from initiated Date: [] Patient: Chayo Bermudez a 66 y/o F admitted on 07/05/21 for passsed out. Chief Complaint: [] Interval history: Ms. Bermudez is a 65 year old F no past medical history, presenting with 1 week history of general body weakness, shortness of breath, respiratory wheezings, subjective fever and chills. Patient is not vaccinated against Covid pneumonia. No prior similar history. Over the past week, she experienced ge neral body weakness, shortness of breath, respiratory wheezing, subjective fever and chills. Denies any cough or sputum productions. Denies any chest pain or palpitations. She also have generalized muscle and joint aches as well as decreased appetite. It was also reported that she had an episode of syncope earlier yesterday which prompted her son to bring her to our ER for further evaluations. Vital signs within normal limits upon ER presentations. She was tested positive for Covid pneumonia in the ER. Labs were largely within normal limits with absence of leukocytosis with WBC 4.0. Chest x-ray showing mild left basilar infiltrate otherwise negative examinations. CT of the head without contrast did not show any acute intracranial pathologies. 07/04: Fever with Tmax 39.6 overnight. Was on 2L/min oxygen last night while sleeping, currently on room air. c/o general body weakness. c/o nonproductive cough. c/o fever and chills. 07/05 Patient states that about 3 to 4 days prior to mission she started feeling ill with fever chills some shortness of breath but no cough. She has since developed productive cough of sputum which sometimes is yellow per her. She is a bit more short of breath. Chest x-ray now does show bilateral infiltrates. Started on remdesivir and dexamethasone. 07/06 Patient states she is feeling a little bit better today. Feels her shortness of breath is slowly improving. Has minimal cough. Does have heartburn but no other complaints. She is on 40 L/min 40% FiO2 07/07 Patient thinks she feels a little better today although FiO2 had to be increased to 50% from 35 yesterday afternoon. Minimal cough. No other pains or complaints. Inflammatory markers improving. 07/08 Patient says she feels tired and weak. Has occasional cough. She is requiring less oxygen and is now down to 8 L high flow. Chest x-ray yesterday showed much improvement. 07/09 Patient's says she feels about the same as yesterday but overall better. She is on 3 L nasal cannula. Has very minimal cough. Denies shortness of breath at rest. 07/10-patient remains critically ill, intermittently confused, requiring 8 L high flow oxygen. Gotten worse since previous day. Repeat interval chest imaging today. On dexamethasone, twice daily enoxaparin. DC Rocephin. Continue Coumadin precautions. Repeat ABG 07/11-continue dexamethasone, restarted in July, status post Actemra. Currently on 50% FiO2 40 L high flow remains critically ill. Interval chest imaging bilateral patchy infiltrates. DC antibiotic coverage. Gentle diuresis.No overnight fever chills or concerns per nursing staff 07/12-patient continues to be critically ill. On 50% FiO2 high flow 50 L. I nterval chest imaging slight improvement in bilateral multifocal infiltrates. Off antibiotic coverage. Continue dexamethasone/remdesivir. Patient feels very depressed. Responding well to diuretics. No telemetry events White count 11.9, stable renal function. On twice daily Lovenox. Prognosis guarded 07/13-patient clinically improving. Weaning oxygen from high flow to nasal cannula, diuresing well. Currently on 5 L oxygen. Much improved mental status. Case discussed with son. No overnight fever chills. Stable hemodynamics. Stable labs except for white count at 14.2. Continue remdesivir/dexamethasone. Improved prognosis noted Constitutional Vitals: Vital Signs Temp Pulse Resp BP Pulse Ox 97.8 F 75 16 112/74 96 07/13/21 08:01 07/13/21 10:01 07/13/21 10:01 07/13/21 10:01 07/13/21 10:01 Period Temp Pulse Resp BP Sys/Saucedo Pulse Ox Last 24 Hr 97.2 F-97.8 F 50-85 13-23 97-133/66-87 94-100 Intake and Output 07/12/21 07/13/21 07/13/21 21:59 05:59 13:59 Intake Total 480 360 340 Output Total 1300 1000 Balance -820 360 -660 Weight 79.038 kg alert oriented Nonlabored breathing on 5 L oxygen No lymphedema Minimally anxious Intake & Output: Intake & Output 07/12/21 07/13/21 07/13/21 21:59 05:59 13:59 Intake Total 480 360 340 Output Total 1300 1000 Balance -820 360 -660 Weight 79.038 kg Intake: Nourishment/Supplement quantity 120 (ml) Oral 480 360 220 Output: Urine Catheter Amount 1000 Void Amount 1300 Other: Meal Dinner Breakfast Percent of Meal Consumed 100% 75% Feeding Ability Independent Nourishment/Supplement name glucerna Urine Appearance Clear Clear Urine Color Dark Yellow Light Marry Urine Odor Normal Stool Size Smear Stool Color Brown Stool Consistency Soft Formed # Bowel Movements 1 OBJ DATA Labs CBC & Chem 7: 07/13/21 05:16 07/13/21 05:16 Labs: Abnormal Lab Results 07/13/21 07/13/21 07/12/21 05:16 05:16 05:19 WBC 14.2 H Plt Count 473 H Absolute Neutrophils 11.00 H BUN 24 H Glucose 120 H 128 H GGT 66 H 62 H Lactate Dehydrogenase 396 H 342 H Triglycerides 195 H 179 H 07/12/21 07/11/21 05:19 05:51 WBC 11.9 H Plt Count 462 H 461 H Absolute Neutrophils 9.27 H BUN Glucose GGT Lactate Dehydrogenase Triglycerides Meds: Medications Acetaminophen (Acetaminophen 325 Mg Tablet) 650 mg PO Q6HP PRN; Protocol PRN Reason: Per Pain Protocol/Fever > 101 Last Admin: 07/11/21 21:37 Dose: 650 mg Documented by: Al Hydrox/Mg Hydrox/Simethicone (Mag Hydrox/Al Hydrox/Simeth 30 Ml Oral.Susp) 30 ml PO Q4-6HP PRN PRN Reason: Dyspepsia Last Admin: 07/13/21 10:38 Dose: 30 ml Documented by: Albuterol/Ipratropium (Ipratropium/Albuterol 3 Ml Ampul.Neb) 3 ml NEB Q4HRT PRN PRN Reason: Wheezing Last Admin: 07/11/21 13:50 Dose: 3 ml Documented by: Dexamethasone (Dexamethasone 4 Mg Tablet) 6 mg PO DAILY [facility] Last Admin: 07/13/21 09:17 Dose: 6 mg Documented by: Docusate Sodium (Docusate Sodium 100 Mg Capsule) 100 mg PO BID [facility] Last Admin: 07/13/21 09:17 Dose: 100 mg Documented by: Enoxaparin Sodium (Enoxaparin 40 Mg/0.4 Ml Syringe) 40 mg SQ BID [facility] Last Admin: 07/13/21 09:16 Dose: 40 mg Documented by: Furosemide (Furosemide 20 Mg/2 Ml Vial) 20 mg IV DAILY [facility] Last Admin: 07/13/21 09:17 Dose: 20 mg Documented by: Potassium Chloride 40 meq/ (Dextrose) 520 mls @ 130 mls/hr IV UD PRN PRN Reason: K+ = or < 3.5 Magnesium Sulfate (Magnesium Sulfate) 2 gm in 50 mls @ 50 mls/hr IV UD PRN PRN Reason: Mag < or = 1.7 REMDESIVIR 100 mg/ Sodium (Chloride) 250 mls @ 500 mls/hr IV Q24H [facility] Stop: 07/15/21 13:29 Last Infusion: 07/12/21 13:30 Dose: Infused Documented by: Ibuprofen (Ibuprofen 600 Mg Tablet) 600 mg PO QIDP PRN; Protocol PRN Reason: Per Pain Protocol/Fever > 101 Magnesium Hydroxide (Magnesium Hydroxide 30 Ml Oral.Susp) 30 ml PO DAILYP PRN PRN Reason: Constipation Last Admin: 07/11/21 08:49 Dose: 30 ml Documented by: Nicotine (Nicotine 21 Mg Patch) 21 mg TOPICAL DAILY@1000 [facility] Last Admin: 07/13/21 09:17 Dose: 21 mg Documented by: Ondansetron HCl (Ondansetron 4 Mg/2 Ml Vial) 4 mg IV Q6HP PRN PRN Reason: Nausea And Vomiting Last Admin: 07/07/21 08:42 Dose: 4 mg Documented by: Polyethylene Glycol (Polyethylene Glycol 3350 17 Gm Packet) 17 gm PO DAILYP PRN PRN Reason: Constipation Last Admin: 07/08/21 16:27 Dose: 17 gm Documented by: Potassium Chloride (Potassium Chlor[facility] 20 Meq Tablet) [facility] Last Admin: 07/13/21 08:07 Dose: 20 meq Documented by: Potassium/Phosphorus/Sodium (Neutra Phos 1 Packet) 2 packet PO ONCE PRN PRN Reason: For phosphorus less than 2.5 Senna (Sennosides 1 Tablet) 2 tab PO HS [facility] Last Admin: 07/12/21 21:04 Dose: 2 tab Documented by: Sodium Biphosphate/Sodium Phosphate (Fleets Adult Enema) 1 dose LA DAILYP PRN PRN Reason: Constipation Last Admin: 07/08/21 17:16 Dose: 1 dose Documented by: Sodium Chloride (0.9 % Sodium Chloride 10 Ml Syringe) 10 ml IV Q8 [facility] Last Admin: 07/13/21 06:08 Dose: Not Given Documented by: Trazodone HCl (Trazodone Hcl 50 Mg Tablet) 25 mg PO HSP PRN PRN Reason: Insomnia A/P Narrative A/P Narrative: * COVID-19 pneumonia with ARDS. Clinical improvement noted over the last 24 hours. On dexamethasone/remdesivir. Status post Actemra. * ARDS with hypoxic respiratory failure continue- improved PF ratio/chest infiltrates. On 5 L oxygen. * Tobacco dependence nicotine patch * Generalized deconditioning continue PT * DVT prophylaxis twice daily Lovenox Plan * Continue dexamethasone/remdesivir day 8 * Continue diuresis * Possible transfer out of unit if continues to improve clinically * Prone positioning as tolerated * Improved prognosis based on clinical improvement over the last 24 hours * Case management coordinate transfer to SNF on discharge Time Spent With Patient Time: CC time Total time spent with greater than 50% in coordination of care (as documented) at patient's floor/unit and/or counseling patient:: Greater than 35 minutes QUALITY VTE Deep Vein Thrombosis/Pulmonary Embolism Present on Admission: No
[2021-07-13] MEDS: REMDESIVIR 100 MG in 0.9 % SODIUM CHLORIDE 250 ML IV SCH (12:45)
[2021-07-13] MEDS ORDERED: PHENobarb/HYOSCY/ATROPINE/SCOP 1 DOSE BOTTLE PO ONE (13:07)
[2021-07-13] MEDS: PANTOPRAZOLE 40 MG TABLET PO SCH ×2 (13:24→17:19)
[2021-07-13] MEDS: SENNOSIDES 1 TABLET PO SCH (20:00)
[2021-07-14] MEDS: 0.9 % SODIUM CHLORIDE 10 ML SYRINGE IV SCH ×3 (05:59→20:21)
[2021-07-14 07:05] LABS: Basophils # (Auto) 0.05 K/mcL (0.00-0.30); Basophils % (Auto) 0.3 % (0.0-2.0); Eosinophils % (Auto) 0.7 % (0.0-7.0); Hematocrit 42.8 % (34.1-44.9); Hemoglobin 13.5 g/dL (11.2-15.7); Lymphocytes # (Auto) 2.39 K/mcL (1.50-4.80); Lymphocytes % (Auto) 15.8 % (15.5-49.0); Mean Cell Volume 87.3 fL (80.0-100.0); Mean Corpuscular HGB Conc 31.5 g/dL (31.0-36.0); Mean Platelet Volume 9.6 fL (7.4-10.4); Monocytes # (Auto) 0.75 K/mcL (0.10-0.90); Neutrophils % (Auto) 78.2 % (38.0-78.0); Platelet Count 424 K/mcL (140-440); Red Cell Distribution Width 13.5 % (11.5-14.5); WBC 15.1 K/mcL (4.5-11.0)
[2021-07-14] MEDS: PANTOPRAZOLE 40 MG TABLET PO SCH ×2 (07:55→16:52)
[2021-07-14] MEDS: FUROSEMIDE 20 MG/2 ML VIAL IV SCH (08:32)
[2021-07-14] MEDS: NICOTINE 21 MG PATCH TOPICAL SCH (08:33)
[2021-07-14] MEDS: DOCUSATE SODIUM 100 MG CAPSULE PO SCH ×2 (08:33→20:20)
[2021-07-14] MEDS: DEXAMETHASONE 4 MG TABLET PO SCH (08:33)
[2021-07-14] MEDS: ENOXAPARIN 40 MG/0.4 ML SYRINGE SQ SCH ×2 (08:33→20:21)
--- NOTE | 2021-07-14 11:41 | Internal Med Progress Note ---
SUBJECTIVE Subjective Patient information: Note initiated : 07/14/21 at 11:39 am Service Date, if different from initiated Date: [] Patient: Chayo Bermudez a 66 y/o F admitted on 07/05/21 for passsed out. Chief Complaint: [] Interval history: Ms. Bermudez is a 65 year old F no past medical history, presenting with 1 week history of general body weakness, shortness of breath, respiratory wheezings, subjective fever and chills. Patient is not vaccinated against Covid pneumonia. No prior similar history. Over the past week, she experienced ge neral body weakness, shortness of breath, respiratory wheezing, subjective fever and chills. Denies any cough or sputum productions. Denies any chest pain or palpitations. She also have generalized muscle and joint aches as well as decreased appetite. It was also reported that she had an episode of syncope earlier yesterday which prompted her son to bring her to our ER for further evaluations. Vital signs within normal limits upon ER presentations. She was tested positive for Covid pneumonia in the ER. Labs were largely within normal limits with absence of leukocytosis with WBC 4.0. Chest x-ray showing mild left basilar infiltrate otherwise negative examinations. CT of the head without contrast did not show any acute intracranial pathologies. 07/04: Fever with Tmax 39.6 overnight. Was on 2L/min oxygen last night while sleeping, currently on room air. c/o general body weakness. c/o nonproductive cough. c/o fever and chills. 07/05 Patient states that about 3 to 4 days prior to mission she started feeling ill with fever chills some shortness of breath but no cough. She has since developed productive cough of sputum which sometimes is yellow per her. She is a bit more short of breath. Chest x-ray now does show bilateral infiltrates. Started on remdesivir and dexamethasone. 07/06 Patient states she is feeling a little bit better today. Feels her shortness of breath is slowly improving. Has minimal cough. Does have heartburn but no other complaints. She is on 40 L/min 40% FiO2 07/07 Patient thinks she feels a little better today although FiO2 had to be increased to 50% from 35 yesterday afternoon. Minimal cough. No other pains or complaints. Inflammatory markers improving. 07/08 Patient says she feels tired and weak. Has occasional cough. She is requiring less oxygen and is now down to 8 L high flow. Chest x-ray yesterday showed much improvement. 07/09 Patient's says she feels about the same as yesterday but overall better. She is on 3 L nasal cannula. Has very minimal cough. Denies shortness of breath at rest. 07/10-patient remains critically ill, intermittently confused, requiring 8 L high flow oxygen. Gotten worse since previous day. Repeat interval chest imaging today. On dexamethasone, twice daily enoxaparin. DC Rocephin. Continue Coumadin precautions. Repeat ABG 07/11-continue dexamethasone, restarted in July, status post Actemra. Currently on 50% FiO2 40 L high flow remains critically ill. Interval chest imaging bilateral patchy infiltrates. DC antibiotic coverage. Gentle diuresis.No overnight fever chills or concerns per nursing staff 07/12-patient continues to be critically ill. On 50% FiO2 high flow 50 L. I nterval chest imaging slight improvement in bilateral multifocal infiltrates. Off antibiotic coverage. Continue dexamethasone/remdesivir. Patient feels very depressed. Responding well to diuretics. No telemetry events White count 11.9, stable renal function. On twice daily Lovenox. Prognosis guarded 07/13-patient clinically improving. Weaning oxygen from high flow to nasal cannula, diuresing well. Currently on 5 L oxygen. Much improved mental status. Case discussed with son. No overnight fever chills. Stable hemodynamics. Stable labs except for white count at 14.2. Continue remdesivir/dexamethasone. Improved prognosis noted 07/14-patient doing a lot better. Currently on 5 L oxygen. Diuresing well. Stable hemodynamics. No overnight fever chills. Transition to medical floor. Remdesivir day 9. No anxiety. Weaning oxygen as tolerated Constitutional Vitals: Vital Signs Temp Pulse Resp BP Pulse Ox 97.5 F 51 L 15 100/70 97 07/14/21 08:01 07/14/21 08:01 07/14/21 04:01 07/14/21 08:01 07/14/21 08:01 Period Temp Pulse Resp BP Sys/Saucedo Pulse Ox Last 24 Hr 97.5 F-98.7 F 49-91 -21 93-124/64-85 90-100 Intake and Output 1107/14/21 07/14/21 21:59 05:59 13:59 Intake Total 1200 480 Output Total 350 450 Balance 850 30 Weight 78.188 kg Alert oriented In good spirits 5 L oxygen nonlabored breathing No lymphedema Intake & Output: Intake & Output 07/13/21 07/14/21 07/14/21 21:59 05:59 13:59 Intake Total 1200 480 Output Total 350 450 Balance 850 30 Weight 78.188 kg Intake: Oral 1200 480 Output: Void Amount 350 450 Other: Meal Dinner Percent of Meal Consumed 100% Feeding Ability Independent Nourishment/Supplement name ensure Urine Appearance Cloudy Urine Color Light Marry Stool Size Moderate Moderate Stool Color Brown Brown Stool Consistency Formed Soft Formed # Bowel Movements 1 OBJ DATA Labs CBC & Chem 7: 07/14/21 05:24 07/13/21 05:16 Labs: Abnormal Lab Results 07/14/21 07/13/21 07/13/21 05:24 05:16 05:16 WBC 15.1 H 14.2 H Plt Count 473 H Neut % (Auto) 78.2 H Absolute Neutrophils 11.85 H 11.00 H BUN 24 H Glucose 120 H GGT 66 H Lactate Dehydrogenase 396 H Triglycerides 195 H 07/12/21 07/12/21 05:19 05:19 WBC 11.9 H Plt Count 462 H Neut % (Auto) Absolute Neutrophils 9.27 H BUN Glucose 128 H GGT 62 H Lactate Dehydrogenase 342 H Triglycerides 179 H Meds: Medications Acetaminophen (Acetaminophen 325 Mg Tablet) 650 mg PO Q6HP PRN; Protocol PRN Reason: Per Pain Protocol/Fever > 101 Last Admin: 07/11/21 21:37 Dose: 650 mg Documented by: Al Hydrox/Mg Hydrox/Simethicone (Mag Hydrox/Al Hydrox/Simeth 30 Ml Oral.Susp) 30 ml PO Q4-6HP PRN PRN Reason: Dyspepsia Last Admin: 07/13/21 10:38 Dose: 30 ml Documented by: Albuterol/Ipratropium (Ipratropium/Albuterol 3 Ml Ampul.Neb) 3 ml NEB Q4HRT PRN PRN Reason: Wheezing Last Admin: 07/11/21 13:50 Dose: 3 ml Documented by: Dexamethasone (Dexamethasone 4 Mg Tablet) 6 mg PO DAILY [facility] Last Admin: 07/14/21 08:33 Dose: 6 mg Documented by: Docusate Sodium (Docusate Sodium 100 Mg Capsule) 100 mg PO BID [facility] Last Admin: 07/14/21 08:33 Dose: 100 mg Documented by: Enoxaparin Sodium (Enoxaparin 40 Mg/0.4 Ml Syringe) 40 mg SQ BID [facility] Last Admin: 07/14/21 08:33 Dose: 40 mg Documented by: Furosemide (Furosemide 20 Mg/2 Ml Vial) 20 mg IV DAILY [facility] Last Admin: 07/14/21 08:32 Dose: 20 mg Documented by: Potassium Chloride 40 meq/ (Dextrose) 520 mls @ 130 mls/hr IV UD PRN PRN Reason: K+ = or < 3.5 Magnesium Sulfate (Magnesium Sulfate) 2 gm in 50 mls @ 50 mls/hr IV UD PRN PRN Reason: Mag < or = 1.7 REMDESIVIR 100 mg/ Sodium (Chloride) 250 mls @ 500 mls/hr IV Q24H [facility] Stop: 07/15/21 13:29 Last Infusion: 07/13/21 13:15 Dose: Infused Documented by: Ibuprofen (Ibuprofen 600 Mg Tablet) 600 mg PO QIDP PRN; Protocol PRN Reason: Per Pain Protocol/Fever > 101 Magnesium Hydroxide (Magnesium Hydroxide 30 Ml Oral.Susp) 30 ml PO DAILYP PRN PRN Reason: Constipation Last Admin: 07/11/21 08:49 Dose: 30 ml Documented by: Nicotine (Nicotine 21 Mg Patch) 21 mg TOPICAL DAILY@1000 [facility] Last Admin: 07/14/21 08:33 Dose: 21 mg Documented by: Ondansetron HCl (Ondansetron 4 Mg/2 Ml Vial) 4 mg IV Q6HP PRN PRN Reason: Nausea And Vomiting Last Admin: 07/07/21 08:42 Dose: 4 mg Documented by: Pantoprazole Sodium (Pantoprazole 40 Mg Tablet) 40 mg PO BIDAC [facility] Last Admin: 07/14/21 07:55 Dose: 40 mg Documented by: Polyethylene Glycol (Polyethylene Glycol 3350 17 Gm Packet) 17 gm PO DAILYP PRN PRN Reason: Constipation Last Admin: 07/08/21 16:27 Dose: 17 gm Documented by: Potassium/Phosphorus/Sodium (Neutra Phos 1 Packet) 2 packet PO ONCE PRN PRN Reason: For phosphorus less than 2.5 Senna (Sennosides 1 Tablet) 2 tab PO HS [facility] Last Admin: 07/13/21 20:00 Dose: 2 tab Documented by: Sodium Biphosphate/Sodium Phosphate (Fleets Adult Enema) 1 dose IN DAILYP PRN PRN Reason: Constipation Last Admin: 07/08/21 17:16 Dose: 1 dose Documented by: Sodium Chloride (0.9 % Sodium Chloride 10 Ml Syringe) 10 ml IV Q8 [facility] Last Admin: 07/14/21 05:59 Dose: 10 ml Documented by: Trazodone HCl (Trazodone Hcl 50 Mg Tablet) 25 mg PO HSP PRN PRN Reason: Insomnia A/P Narrative A/P Narrative: * COVID-19 pneumonia . Clinical improvement noted, transition to medical floor. Continue dexamethasone/remdesivir day 9. Status post Actemra. * ARDS with hypoxic respiratory failure-clinical radiological improvement noted. ImprovedPF ratio/chest infiltrates. Wean oxygen as tolerated. * Tobacco dependence nicotine patch * Generalized deconditioning continue PT * DVT prophylaxis twice daily Lovenox Plan * Continue dexamethasone/remdesivir day 9 * Continue gentle diuresis * Transfer to medical floor * Case management coordinate transfer to SNF on discharge possibly Sunday Time Spent With Patient Time: Total time spent is greater than 50% in coordination of care (as documented) at patient's floor/unit and/or counseling patient: QUALITY VTE Deep Vein Thrombosis/Pulmonary Embolism Present on Admission: No
[2021-07-14] MEDS: REMDESIVIR 100 MG in 0.9 % SODIUM CHLORIDE 250 ML IV SCH (12:46)
[2021-07-14] MEDS: SENNOSIDES 1 TABLET PO SCH (20:20)
[2021-07-15] MEDS: 0.9 % SODIUM CHLORIDE 10 ML SYRINGE IV SCH (05:52)
[2021-07-15] MEDS: PANTOPRAZOLE 40 MG TABLET PO SCH (07:12)
[2021-07-15 07:15] LABS: Basophils # (Auto) 0.06 K/mcL (0.00-0.30); Basophils % (Auto) 0.4 % (0.0-2.0); Eosinophils # (Auto) 0.04 K/mcL (0.00-0.70); Eosinophils % (Auto) 0.3 % (0.0-7.0); Hematocrit 42.9 % (34.1-44.9); Hemoglobin 13.5 g/dL (11.2-15.7); Lymphocytes # (Auto) 2.67 K/mcL (1.50-4.80); Lymphocytes % (Auto) 18.4 % (15.5-49.0); Mean Cell Volume 89.2 fL (80.0-100.0); Mean Corpuscular HGB Conc 31.5 g/dL (31.0-36.0); Monocytes # (Auto) 0.65 K/mcL (0.10-0.90); Monocytes % (Auto) 4.5 % (1.0-12.0); Neutrophils % (Auto) 76.4 % (38.0-78.0); Platelet Count 331 K/mcL (140-440); RBC 4.81 M/mcL (3.59-5.38); Red Cell Distribution Width 13.2 % (11.5-14.5); WBC 14.5 K/mcL (4.5-11.0)
[2021-07-15] MEDS: FUROSEMIDE 20 MG/2 ML VIAL IV SCH (08:24)
[2021-07-15] MEDS: DOCUSATE SODIUM 100 MG CAPSULE PO SCH (08:25)
[2021-07-15] MEDS: DEXAMETHASONE 4 MG TABLET PO SCH (08:25)
[2021-07-15] MEDS: ENOXAPARIN 40 MG/0.4 ML SYRINGE SQ SCH (08:25)
--- NOTE | 2021-07-15 09:03 | Discharge Summary ---
Discharge Provider Provider Patient information: Note initiated : 07/15/21 at 9:03 am Service Date, if different from initiated Date: [] Patient: Chayo Bermudez 66 y/o F admitted on 07/05/21 for passsed out. Chief Complaint: [] Date of admission: 07/05/21 09:45 Discharge date: 07/15/21 Primary care physician: Sebas Lee MD Consults: 07/03/21 Consult to Physician [CONS] Stat Comment: Consulting Provider: Anderson Espinosa Reason For Exam: Physician to Consult Discharge Meds Discharge Medications Home Medications No Known Home Meds 07/02/21 [History Confirmed 07/02/21 Last Taken Unknown] COURSE Hospital Course Hospital course: Discharge diagnosis * COVID-19 pneumonia . Clinical improvement noted, status post 10 days remdesivir/dexamethasone. Completed Actemra * Acute respiratory failure with hypoxia-on 2 L oxygen. Discharging on home oxygen * ARDS secondary to Covid pneumonia-clinical and radiological improvement noted. Responded to gentle diuresis * Tobacco dependence-counseled for cessation * Generalized deconditioning continue PT Brief hospital course Ms. Bermudez is a 65 year old F no past medical history, presenting with 1 week history of general body weakness, shortness of breath, respiratory wheezings, subjective fever and chills. Patient is not vaccinated against Covid pneumonia. No prior similar history. Over the past week, she experienced general body weakness, shortness of breath, respiratory wheezing, subjective fever and chills. Denies any cough or sputum productions. Denies any chest pain or palpitations. She also have generalized muscle and joint aches as well as decreased appetite. It was also reported that she had an episode of syncope earlier yesterday which prompted her son to bring her to our ER for further evaluations. Vital signs within normal limits upon ER presentations. She was tested positive for Covid pneumonia in the ER. Labs were largely within normal limits with absence of leukocytosis with WBC 4.0. Chest x-ray showing mild left basilar infiltrate otherwise negative examinations. CT of the head without contrast did not show any acute intracranial pathologies. 07/04: Fever with Tmax 39.6 overnight. Was on 2L/min oxygen last night while sleeping, currently on room air. c/o general body weakness. c/o nonproductive cough. c/o fever and chills. 07/05 Patient states that about 3 to 4 days prior to mission she started feeling ill with fever chills some shortness of breath but no cough. She has since developed productive cough of sputum which sometimes is yellow per her. She is a bit more short of breath. Chest x-ray now does show bilateral infiltrates. Started on remdesivir and dexamethasone. 07/06 Patient states she is feeling a little bit better today. Feels her shortness of breath is slowly improving. Has minimal cough. Does have heartburn but no other complaints. She is on 40 L/min 40% FiO2 07/07 Patient thinks she feels a little better today although FiO2 had to be increased to 50% from 35 yesterday afternoon. Minimal cough. No other pains or complaints. Inflammatory markers improving. 07/08 Patient says she feels tired and weak. Has occasional cough. She is requiring less oxygen and is now down to 8 L high flow. Chest x-ray yesterday showed much improvement. 07/09 Patient's says she feels about the same as yesterday but overall better. She is on 3 L nasal cannula. Has very minimal cough. Denies shortness of breath at rest. 07/10-patient remains critically ill, intermittently confused, requiring 8 L high flow oxygen. Gotten worse since previous day. Repeat interval chest imaging today. On dexamethasone, twice daily enoxaparin. DC Rocephin. Continue Coumadin precautions. Repeat ABG 07/11-continue dexamethasone, restarted in July, status post Actemra. Currently on 50% FiO2 40 L high flow remains critically ill. Interval chest imaging bilateral patchy infiltrates. DC antibiotic coverage. Gentle diuresis.No overnight fever chills or concerns per nursing staff 07/12-patient continues to be critically ill. On 50% FiO2 high flow 50 L. Interval chest imaging slight improvement in bilateral multifocal infiltrates. Off antibiotic coverage. Continue dexamethasone/remdesivir. Patient feels very depressed. Responding well to diuretics. No telemetry events White count 11.9, stable renal function. On twice daily Lovenox. Prognosis guarded 07/13-patient clinically improving. Weaning oxygen from high flow to nasal cannula, diuresing well. Currently on 5 L oxygen. Much improved mental status. Case discussed with son. No overnight fever chills. Stable hemodynamics. Stable labs except for white count at 14.2. Continue remdesivir/dexamethasone. Improved prognosis noted 07/14-patient doing a lot better. Currently on 5 L oxygen. Diuresing well. Stable hemodynamics. No overnight fever chills. Transition to medical floor. Remdesivir day 9. No anxiety. Weaning oxygen as tolerated 07/15-patient doing a lot better. Currently on 2 L nasal cannula. Completed 10 days remdesivir/dexamethasone. Discharging home with advised to follow primary care physician. Continue home oxygen and wean as tolerated. Continue nutrition support/recommend outpatient physical therapy for continued posthospitalization rehab and general strengthening. No overnight fever chills or concerns per nursing staff Discharge diagnosis: COVID-19 pneumonia Time Spent with Patient Time attestation: Total time spent providing and/or coordinating discharge services: EXAM Constitutional Vitals: Temp Pulse Resp BP Pulse Ox 98.1 F 51 L 16 97/73 98 07/15/21 07:11 07/15/21 05:56 07/15/21 07:11 07/15/21 07:11 07/15/21 07:11 Discharge Data Data Completed and Pending Labs on day of discharge: Labs from last 24 hours 07/15/21 06:15 WBC 14.5 H RBC 4.81 Hgb 13.5 Hct 42.9 MCV 89.2 MCH 28.1 MCHC 31.5 RDW 13.2 Plt Count 331 MPV 10.0 Neut % (Auto) 76.4 Lymph % (Auto) 18.4 [place] % (Auto) 4.5 Eos % (Auto) 0.3 Baso % (Auto) 0.4 Lymph # (Auto) 2.67 [place] # (Auto) 0.65 Eos # (Auto) 0.04 Baso # (Auto) 0.06 Absolute Neutrophils 11.07 H Discharge Plan Patient/Caregiver Discharge Instructions Activity: increase activity as tolerated Diet: Regular Diet Activity Restrictions/Additional Instructions: Discharge home with home oxygen Follow-up PCP in 5 to 7 days Return to ER worsening fever chills nausea vomiting Maintain COVID-19 precautions additional 3 days Prescriptions: No Action No Known Home Meds 0RF Follow Up Plan Follow up with: Sebas Lee MD [Primary Care Provider] - Patient Disposition: Home, Self-Care Prognosis: Fair Rehab Potential: Fair I certify that the patient requires SNF services: No Overall status at discharge: patient is progressing back to baseline Discharge Orders: Discharge Order (Routine); Ordered 07/15/21 Ordered By: John DEVI VTE Deep Vein Thrombosis/Pulmonary Embolism Present on Admission: No
[2021-07-15] MEDS: NICOTINE 21 MG PATCH TOPICAL SCH (11:07)
[2021-07-15] MEDS: REMDESIVIR 100 MG in 0.9 % SODIUM CHLORIDE 250 ML IV SCH (12:19)
[2021-07-15] MEDS: MAG HYDROX/AL HYDROX/SIMETH 30 ML ORAL.SUSP PO PRN (12:53)
== END 2021-07-15 13:20 | disposition home or self-care (01) | DRG 177 ==
LOC: ED 21:57 → INTOOBSV 07-03 11:20 → ICU 07-03 11:20 → MEDSUR 07-14 10:48
PROVIDERS: ADMIT Internal Medicine; ATTEND Internal Medicine